=== PATIENT | male | born 1935 | race Caucasian/White ===

== ENCOUNTER → 2019-10-19 00:01 | Outpatient (RCR) | payer OTHER, SELFPAY | LOC: ONCRAD 09-20 06:58 | PROVIDERS: Family Provider Emergency Medicine Emergency Medical Services; Visit Provider Specialist | DX: Z51.0 Encounter for antineoplastic radiation therapy (principal); C61 Malignant neoplasm of prostate; K64.9 Unspecified hemorrhoids; Z79.818 Long term (current) use of other agents affecting estrogen receptors and estrogen levels; Z79.899 Other long term (current) drug therapy; Z79.82 Long term (current) use of aspirin | CPT/HCPCS: 36415; 77280; 77300 ×2; 77336 ×4; 77338 ×2; 77385 ×20; 80053; 84153; 84403; 85025; 96402; 99214; J9202 ==

== ENCOUNTER 2019-11-08 06:17 | Outpatient (RCR) | payer OTHER, SELFPAY ==
--- NOTE | 2019-10-26 11:23 | ONCRAD TMN_ITS ---
Radiation Oncology Weekly Treatment Management Patient: Blayne Sanford MR#: [id number] : 1935> Age: 84> Sex: Male Dictated by: Dr. Brent Solomon Date of Service: 10/26/2019 Referring Physician(s) : Dr. Wero Rivera Primary Diagnosis: C61 - Malignant neoplasm of prostate, Diagnosed 06/17/2019 (Active) Radiotherapy to date: Course: Prostate 2019, Treatment Site: Prostate 45Gy, Ref. ID: [id number], Energy: 6X, Dose/Fx (cGy): 180, #Fx: 25 / 25, Dose Correction (cGy): 0, Total Dose (cGy): 4,500, Start Date: 09/02/2019, End Date: 10/12/2019, Elapsed Days: 40 Prostate 2018, Treatment Site: Prostate 55Gy, Ref. ID: [id number], Energy: 6X, Dose/Fx (cGy): 200, #Fx: 5 / 5, Dose Correction (cGy): 0, Total Dose (cGy): 1,000, Start Date: 10/14/2019, End Date: 10/21/2019, Elapsed Days: 7 Prostate 2018, Treatment Site: Prostate 79Gy, Ref. ID: [id number], Energy: 6X, Dose/Fx (cGy): 200, #Fx: 3 / 12, Dose Correction (cGy): 0, Total Dose (cGy): 600, Start Date: 10/22/2019, Elapsed Days: 4 Current Complaints/Interval History: Constitutional Complains of night sweats which occur every night. Denies lack of appetite, fatigue and fever. Gastrointestinal Complains of occasional diarrhea. Denies constipation. He has a history of hemorrhoids. He noticed blood on wiping after bowel movements and anal irritation possibly related to hemorrhoid flare up. Genitourinary (M) Complains of occasional incontinence. Complains of nocturia gets up about 2 times per night. Denies dysuria, frequency and urgency. Current Medications: Aspirin, cholecalciferol, donepezil HCl, ondansetron HCl, tamsulosin HCl. Allergies: No Known Allergies Vital Signs: Performed on 10/26/2019 10:35 AM BMI - 28.494 kg/m2 (high), Height - 64.00 in, Weight - 166.0 lbs, Temperature - 97.2 f, Pulse - 60, Respiration - 20, O2 Sat - 99 %, Pain - 0 and BP - 128/ 79 mm(hg). Physical Exam: Appears stable, no skin erythema or desquamation. Performance Status: 1 - No physically strenuous activity, but ambulatory and able to carry out light or sedentary work (e.g. office work, light house work). (ECOG) Lab: Test performed on 09/28/2019 11:05 AM MCV - 99.3 fl (high), MCH - 35.0 pg (high), Cr Clearance (Est) - 65.15 ml/min (low), Glucose - 116 mg/dl (high) and Testosterone, Total - 2.5 ng/dl (low). Imaging: No new diagnostic imaging was performed since the last weekly treatment visit. All radiation therapy related imaging (including but not limited to CBCT generated images) was reviewed. Appropriate changes, if any, were made to assure accurate target localization. Impression/Plan: Tolerating treatment well with expected side effects. Continue treatment as planned. Continue preparation H for hemorrhoid flareup CPT: 82795 Signed by: Dr. Brent Solomon>10/26/2019 11:22:00 AM <<Signature on File>>
--- NOTE | 2019-11-02 12:55 | ONCRAD TMN_ITS ---
Radiation Oncology Weekly Treatment Management Patient: Blayne Sanford MR#: [id number] : 1935> Age: 84> Sex: Male Dictated by: Dr. Brent Solomon Date of Service: 11/02/2019 Referring Physician(s) : Dr. Wero Rivera Primary Diagnosis: C61 - Malignant neoplasm of prostate, Diagnosed 06/17/2019 (Active) Radiotherapy to date: Course: Prostate 2019, Treatment Site: Prostate 45Gy, Ref. ID: [id number], Energy: 6X, Dose/Fx (cGy): 180, #Fx: 25 / 25, Dose Correction (cGy): 0, Total Dose (cGy): 4,500, Start Date: 09/02/2019, End Date: 10/12/2019, Elapsed Days: 40 Prostate 2018, Treatment Site: Prostate 55Gy, Ref. ID: [id number], Energy: 6X, Dose/Fx (cGy): 200, #Fx: 5 / 5, Dose Correction (cGy): 0, Total Dose (cGy): 1,000, Start Date: 10/14/2019, End Date: 10/21/2019, Elapsed Days: 7 Prostate 2018, Treatment Site: Prostate 79Gy, Ref. ID: [id number], Energy: 6X, Dose/Fx (cGy): 200, #Fx: 8 / 12, Dose Correction (cGy): 0, Total Dose (cGy): 1,600, Start Date: 10/22/2019, Elapsed Days: 11 Current Complaints/Interval History: Constitutional Complains of night sweats. Denies lack of appetite, fatigue and fever. Gastrointestinal Denies diarrhea, rectal bleeding or irritation Genitourinary (M) Complains of nocturia gets up about 2 times per night. Denies dysuria, frequency and urgency. Current Medications: Aspirin, cholecalciferol, donepezil HCl, ondansetron HCl, tamsulosin HCl. Allergies: No Known Allergies Vital Signs: Performed on 11/02/2019 10:29 AM BMI - 28.357 kg/m2 (high), Height - 64.00 in, Weight - 165.2 lbs, Temperature - 97.2 f, Pulse - 70, Respiration - 20, O2 Sat - 100 %, Pain - 0 and BP - 131/ 71 mm(hg). Physical Exam: Appears stable, no skin erythema or desquamation. Performance Status: 1 - No physically strenuous activity, but ambulatory and able to carry out light or sedentary work (e.g. office work, light house work). (ECOG) Lab: Test performed on 09/28/2019 11:05 AM MCV - 99.3 fl (high), MCH - 35.0 pg (high), Cr Clearance (Est) - 65.15 ml/min (low), Glucose - 116 mg/dl (high) and Testosterone, Total - 2.5 ng/dl (low). Imaging: No new diagnostic imaging was performed since the last weekly treatment visit. All radiation therapy related imaging (including but not limited to CBCT generated images) was reviewed. Appropriate changes, if any, were made to assure accurate target localization. Impression/Plan: Tolerating treatment well. Continue treatment as planned. CPT: 51373 Signed by: Dr. Brent Solomon>11/02/2019 12:53:51 PM <<Signature on File>>
== END 2019-11-19 23:59 | disposition home or self-care (01) ==
LOC: ONCRAD 06:17
PROVIDERS: Family Provider Emergency Medicine Emergency Medical Services; PCP Emergency Medicine Emergency Medical Services; Visit Provider Radiology Radiation Oncology
DX: Z51.0 Encounter for antineoplastic radiation therapy (principal); C61 Malignant neoplasm of prostate; Z79.82 Long term (current) use of aspirin
CPT/HCPCS: 77014; 77280; 77336; 77385; 77427

== ENCOUNTER 2019-12-08 05:56 | Outpatient (RCR) | payer OTHER, SELFPAY ==
--- NOTE | 2019-12-08 10:54 | ONCRAD EPV_ITS ---
Radiation Oncology Established Patient Visit Patient: Chris MR#: [id number] : 1935> Age: 84> Sex: Male> Dictated by: Dr. Brent Solomon Date of Service: 12/08/2019 Referring Physician(s) : Dr. Wero Rivera Diagnosis: C61 - Malignant neoplasm of prostate, Diagnosed 06/17/2019 (Active) Chief Complaint / History of Present Illness: The patient is a 84 year old gentleman recently diagnosed with T1c, N0, M0 adenocarcinoma of the prostate, Norma score 4+5, PSA 53, high risk disease. He was started on androgen deprivation therapy on 06/29/2019. He received combination therapy with androgen deprivation and external beam radiation therapy to a total dose of 79 Gy completed on November 08, 2019. The patient notes nocturia x2-4 but denies dysuria, frequency, urgency, hematuria, rectal bleeding or irritation. Current Medications: Aspirin, cholecalciferol, donepezil HCl, ondansetron HCl, tamsulosin HCl. Allergies: No Known Allergies Current Complaints / Review of Systems: Constitutional - Complains of night sweats which occur every night. Denies lack of appetite, fatigue and fever. Eyes - Denies blurred vision and double vision. ENMT - Complains of mouth dryness off and on. Denies dysphagia, ear pain, stomatitis, altered taste and tinnitus. Neck - Complains of neck pain left side of the neck that started about a week ago. Denies decreased range of motion. Integumentary - Denies rash. Cardiovascular - Denies arrhythmias, chest pain and edema. Respiratory - Denies cough, dyspnea and wheezing. Gastrointestinal - Complains of hemorrhoids. Denies abdominal pain, constipation, diarrhea, heartburn / dyspepsia, melena / GI bleeding, nausea and vomiting. No rectal bleeding or irritation. Genitourinary (M) - Complains of occasional incontinence. Complains of nocturia gets up about 2 to 4 times per night. Denies dysuria, frequency and urgency. 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 Denies bone pain and joint pain. Neurologic - Denies dizziness and headaches. Endocrine - Complains of frequent hot flashes. Denies diabetes and thyroid disease. Hematologic/Lymphatic - Denies tender or enlarged lymph nodes.. Vital Signs: Performed on 12/08/2019 10:16 AM BMI - 29.146 kg/m2 (high), Height - 64.00 in, Weight - 169.8 lbs, Temperature - 97.1 f, Pulse - 69, Respiration - 20, O2 Sat - 100 %, Pain - 0, Fatigue - 0 and BP - 126/ 71 mm(hg). Physical Exam: General: Alert and oriented x 3. No acute distress. HEENT: Normocephalic, atraumatic. Extraocular Movements Intact: Pupils Equal, Round, Reactive to Light and Accommodation: Sclerae anicteric. Oral cavity is clear without lesions, masses or ulcers. NECK: Supple without supraclavicular or jugular lymphadenopathy. LUNGS: Clear to auscultation bilaterally without rales, rhonchi or wheeze. HEART: Regular rate and rhythm, normal S1 and S2 without murmur, gallop or rub. MUSCULOSKELETAL: No tenderness or percussion pain over the axial skeleton, scapulae or pelvis. ABDOMEN: Soft, nontender, nondistended without masses or organomegaly. Bowel sounds are present. EXTREMITIES: No peripheral edema is identified. Limited motor and sensory examination are grossly intact and symmetric bilaterally. NEUROLOGIC: Cranial nerves II ???XII are grossly intact. Normal sensation, strength 5/5 in all extremities, normal gait, no ataxia. Performance Status: 1 - No physically strenuous activity, but ambulatory and able to carry out light or sedentary work (e.g. office work, light house work). (ECOG) Lab: Test performed on 09/28/2019 11:05 AM MCV - 99.3 fl (high), MCH - 35.0 pg (high), Cr Clearance (Est) - 65.15 ml/min (low), Glucose - 116 mg/dl (high) and Testosterone, Total - 2.5 ng/dl (low). Pathology: adenocarcinoma of prostate, Imaging: See HPI Impression/plan: The patient has recovered well from RT. he will continue hormonal therapy under the care of Dr. Black. We will check his PSA in about a 4 to 6 months and have him follow up with us afterwards. Signed by: 12/08/2019 10:52:21 AM <<Signature on File>> CPT Code: CPT Code: Signed By: Dr. Brent Solomon, 12/08/2019 10:52:22 AM <<Signature on File>>
== END 2019-12-18 23:59 | disposition home or self-care (01) ==
LOC: ONCRAD 05:56
PROVIDERS: Family Provider Emergency Medicine Emergency Medical Services; PCP Emergency Medicine Emergency Medical Services; Visit Provider Radiology Radiation Oncology
DX: C61 Malignant neoplasm of prostate (principal); R35.1 Nocturia; Z92.3 Personal history of irradiation

== ENCOUNTER 2019-12-28 05:46 | Outpatient (RCR) | payer OTHER, SELFPAY ==
[2019-12-28 11:54] LABS: Prostate Specific Antigen 0.06 ng/mL (0-4)
[2019-12-28 12:06] LABS: Alanine Aminotransferase 11 U/L (0-41); Alkaline Phosphatase 52 IU/L (40-130); Anion Gap 17.1 (5-19); Aspartate Amino Transferase 20 U/L (0-40); Blood Urea Nitrogen 20 mg/dL (8-23); Calcium 10.1 mg/dL (8.5-10.5); Carbon Dioxide 27 mmol/L (22-29); Chloride 102 mmol/L (98-107); Globulin 3.2 g/dL (1.3-4.6); Glucose 117 mg/dL (65-115); Osmolality Calculated 292 mOsm/kg (285-295); Potassium 4.1 mmol/L (3.5-5.1); Sodium 142 mmol/L (136-145); Total Bilirubin 0.5 mg/dL (0.15-1.2); Total Protein 7.2 g/dL (6.6-8.7)
[2019-12-28] MEDS: lidocaine 1% INJ 20 mL INJECTION (13:14)
--- NOTE | 2019-12-28 13:18 | ONC FU_ITS ---
Dr. Black follow up note Patient: Blayne Sanford Unit #: [id number]: 1935 Dicatated By: Abril Black M.D.Date of Visit:Dec 28, 2019 Onc Med Follow-up/Prog Note History of Present Illness: Mr. Blayne Sanford , is a 84-year-old gentleman with history of elevated PSA and underwent TRUSP/biopsy on 04/16/2019 which showed Norma score 4+5, 30% involvement left lateral mid, PIN low-grade left mid and left apex and his PSA was 60.14 on 04/16/2019. Underwent staging workup with bone scan and CT scan of abdomen pelvis on 05/04/2019 which showed markedly enlarged prostate gland but no adenopathy and bone scan was negative. Patient denies any weight loss patient denies any hematuria patient denies any bony pains. Started on Zoladex 10.8 mg every 3 months and Casodex 50 mg daily on 06/29/2019 plan to continue as concurrent with radiation therapy followed by adjuvant s/p concurrent radiation therapy and ADT . completed on 11/08/2019, Casodex discontinued on 09/28/2019 Came for follow-up, denies any specific complaints, except occasionally hot flashes but tolerable otherwise tolerating Zoladex well and, no nausea vomiting no fever no chills denies abdominal pain or dysuria. Medications: Aspirin 1 Tablet (of 81 mg) Oral daily, Cholecalciferol 1 Tablet (of 2000 Units) Oral daily, Donepezil HCl 1 Tablet (of 10 mg) Oral at bedtime, Ondansetron HCl 1 Tablet (of 4 mg) Oral q 4 hours PRN, Tamsulosin HCl 1 Capsule (of 0.4 mg) Oral at bedtime Allergies: No Known Allergies. Review of Systems: Constitutional - Appetite is good and weight is stable. No fever, chills, hot flashes, or night sweats. Energy level is good, ENMT - Positive for sinus congestion/drainage. No mouth sores. No sore throat or difficulty swallowing, Hematologic/Lymphatic - No abnormal bruising or bleeding, Respiratory - No shortness of breath. No cough. No pleuritic pain or hemoptysis, Cardiovascular - No angina pain. No palpitations, Gastrointestinal - No nausea or vomiting. No heartburn or acid reflux. Positive for diarrhea, no constipation. Positive for bloody stools, Genitourinary (M) - No dysuria or hematuria. No urinary frequency. No urgency or incontinence, Musculoskeletal - Positive for joint pain, Neurologic - Positive for headache, no dizziness. Positive for tingling in fingers, Psychiatric - No anxiety or depression. No insomnia. Vital Signs: Performed on Dec 28, 2019 12:43 Height - 64.00 in Weight - 171.4 lbs (HIGH) BSA - 1.83 sq.m BMI - 29.42 Temperature - 97.6 F (LOW) Pulse - 67 /min Respiration - 18 /min BP - 128/77 mm(hg) O2 Sat - 93 % (LOW) Pain - 0 Performance Status: 0 - Fully active, able to carry on all predisease activities without restrictions. (ECOG) Physical Examination: ENMT - No oral exudates, ulcers, masses, thrush or mucositis. Oropharynx clear. Tongue normal, Respiratory - Lungs are clear to auscultation without rhonchi or wheezing, Cardiovascular - Regular rate and rhythm of heart, Abdomen - Non-tender, non-distended, no masses, Good bowel sounds. No guarding or rebound tenderness. No pulsatile masses, Extremities - no edema. Lab/Imaging: Test performed on Sep 28, 2019 11:05 Sodium 137 mmol/L Testosterone, Total 2.5 ng/dL Potassium 4.0 mmol/L Chloride 99 mmol/L CO2 26 mmol/L Anion Gap 16.0 BUN 11 mg/dL Creatinine 0.9 mg/dL Cr Clearance (Est) 65.15 mL/min Glucose 116 mg/dl Calcium 10.2 mg/dL Protein, Total 7.8 g/dL Albumin 4.6 g/dL Globulin 3.2 gm/dL Bilirubin, Total 1.0 mg/dL ALT (SGPT) 10 U/L AST (SGOT) 20 U/L Alkaline Phosphatase 57 U/L WBC 4.3 10 3/uL RBC 4.23 10 6/uL HGB 14.8 g/dL HCT 42.0 % MCV 99.3 fl MCH 35.0 pg MCHC 35.2 g/dl RDW 12.4 % Platelet Count 145 10 3/cmm MPV 8.2 fl Neutrophils 3.0 10 3/uL Lymphocytes 0.8 10 3/uL Monocytes 0.3 10 3/uL Eosinophils 0.1 10 3/uL Basophils 0.0 10 3/uL Neutrophil % 70.5 % Lymphocyte % 19.3 % Monocyte % 7.4 % Eosinophil % 1.6 % Basophils % 0.7 % PSA 0.54 ng/mL Impression: Adenocarcinoma of the prostate status post TURSP/biopsy done on 04/16/2019 showed [place] score 4+5, 30% involvement left lateral mid, PIN low-grade left mid and left apex, next PSA checked on 04/16/2019 was 60.14 Started on Casodex 50 mg daily on 06/29/2019 till 09/28/2019 and Zoladex was added on 06/29/2019. s/p concurrent radiation therapy. completed on 11/08/2019 Plan: Discussed with patient regarding his labs CMP within normal limits PSA 0.06 compared to 0.54 on 09/28/2019 and 60.14 on 04/16/2019 Clinically, patient doing well with no signs symptoms suggestive of recurrence/progression of disease, tolerating Zoladex alone well but with expected side effects e.g. occasionally hot flashes but tolerable. We'll proceed with next 3 monthly dose of Zoladex today, being high risk, patient will continue 3 monthly Zoladex for next 2 years. Return to clinic in 3 months with PSA and for 3 monthly Zoladex. Signed By: Abril Black M.D. <<Signature on File>>
[2019-12-28] MEDS: goserelin acetate 10.8 mg Implant IM (13:26)
== END 2020-01-18 23:59 | disposition home or self-care (01) ==
LOC: ONCRAD 05:46
PROVIDERS: Family Provider Emergency Medicine Emergency Medical Services; PCP Emergency Medicine Emergency Medical Services; Visit Provider Internal Medicine Hematology & Oncology
DX: C61 Malignant neoplasm of prostate (principal); Z79.818 Long term (current) use of other agents affecting estrogen receptors and estrogen levels; Z79.899 Other long term (current) drug therapy; Z79.82 Long term (current) use of aspirin; Z92.3 Personal history of irradiation
CPT/HCPCS: 36415; 80053; 84153; 96372; 96402; 99214; J2001; J9202

== ENCOUNTER 2020-03-29 10:49 | Outpatient (CLI) | payer OTHER, SELFPAY ==
--- NOTE | 2020-03-29 13:14 | ONC FU_ITS ---
Dr. Black follow up note Patient: Blayne Sanford Unit #: [id number]: 1935 Dicatated By: Abril Black M.D.Date of Visit:Mar 29, 2020 Onc Med Follow-up/Prog Note History of Present Illness: Mr. Blayne Sanford , is a 85-year-old gentleman with history of elevated PSA and underwent TRUSP/biopsy on 04/16/2019 which showed Norma score 4+5, 30% involvement left lateral mid, PIN low-grade left mid and left apex and his PSA was 60.14 on 04/16/2019. Underwent staging workup with bone scan and CT scan of abdomen pelvis on 05/04/2019 which showed markedly enlarged prostate gland but no adenopathy and bone scan was negative. Patient denies any weight loss patient denies any hematuria patient denies any bony pains. Started on Zoladex 10.8 mg every 3 months and Casodex 50 mg daily on 06/29/2019 plan to continue as concurrent with radiation therapy followed by adjuvant s/p concurrent radiation therapy and ADT . completed on 11/08/2019, Casodex discontinued on 09/28/2019 Came for follow-up, denies any special complaint today, no nausea vomiting, no fever chills, no diarrhea constipation, occasionally hot flashes otherwise tolerating 3 monthly Zoladex well Medications: Aspirin 1 Tablet (of 81 mg) Oral daily, Cholecalciferol 1 Tablet (of 2000 Units) Oral daily, Donepezil HCl 1 Tablet (of 10 mg) Oral at bedtime, Ondansetron HCl 1 Tablet (of 4 mg) Oral q 4 hours PRN, Tamsulosin HCl 1 Capsule (of 0.4 mg) Oral at bedtime Allergies: No Known Allergies. Review of Systems: Constitutional - Appetite is good and weight is stable. No fever, chills, hot flashes, or night sweats. Energy level is good, ENMT - Positive for sinus congestion/drainage. No mouth sores. No sore throat or difficulty swallowing, Hematologic/Lymphatic - No abnormal bruising or bleeding, Respiratory - No shortness of breath. No cough. No pleuritic pain or hemoptysis, Cardiovascular - No angina pain. No palpitations, Gastrointestinal - No nausea or vomiting. No heartburn or acid reflux. Positive for diarrhea, no constipation. Positive for bloody stools, Genitourinary (M) - No dysuria or hematuria. No urinary frequency. No urgency or incontinence, Musculoskeletal - Positive for joint pain, Neurologic - Positive for headache, no dizziness. Positive for tingling in fingers, Psychiatric - No anxiety or depression. No insomnia. Vital Signs: Performed on Mar 29, 2020 12:44 Height - 64.00 in Weight - 170.8 lbs (LOW) BSA - 1.83 sq.m BMI - 29.32 Temperature - 97.9 F (LOW) Pulse - 68 /min Respiration - 22 /min BP - 138/67 mm(hg) O2 Sat - 100 % Pain - 0 Performance Status: 0 - Fully active, able to carry on all predisease activities without restrictions. (ECOG) Physical Examination: ENMT - No mouth sores, no thrush, no jaundice, Respiratory - Lungs are clear, Cardiovascular - Regular rate and rhythm of heart, Abdomen - Soft, bowel sounds present, nontender, Extremities - No visible edema or rash. Lab/Imaging: Test performed on Dec 28, 2019 11:14 Sodium 142 mmol/L Potassium 4.1 mmol/L Chloride 102 mmol/L CO2 27 mmol/L Anion Gap 17.1 BUN 20 mg/dL Creatinine 0.9 mg/dL Cr Clearance (Est) 67.19 mL/min Glucose 117 mg/dL Calcium 10.1 mg/dL Protein, Total 7.2 g/dL Albumin 4.0 g/dL Globulin 3.2 g/dL Bilirubin, Total 0.5 mg/dL ALT (SGPT) 11 U/L AST (SGOT) 20 U/L Alkaline Phosphatase 52 IU/L PSA 0.06 ng/mL Impression: Adenocarcinoma of the prostate status post TURSP/biopsy done on 04/16/2019 showed [place] score 4+5, 30% involvement left lateral mid, PIN low-grade left mid and left apex, next PSA checked on 04/16/2019 was 60.14 Started on Casodex 50 mg daily on 06/29/2019 till 09/28/2019 and Zoladex was added on 06/29/2019. s/p concurrent radiation therapy. completed on 11/08/2019 Plan: Discussed with patient regarding his lab, PSA today is 0.02 compared to 0.06 on December 28, 2019 Clinically, patient is doing well tolerating 3 monthly Zoladex well but with expected side effects e.g. occasional hot flashes. We will proceed with next dose of Zoladex today and then he will return to clinic in 3 months with PSA/testosterone. And for Zoladex. Signed By: Abril Black M.D. <<Signature on File>>
[2020-03-29] MEDS: lidocaine 1% INJ 20 mL INJECTION (13:20)
[2020-03-29] MEDS: goserelin acetate 10.8 mg Implant IM (13:35)
== END 2020-03-29 10:50 | disposition home or self-care (01) ==
PROVIDERS: PCP Emergency Medicine Emergency Medical Services; Visit Provider Internal Medicine Hematology & Oncology
DX: C61 Malignant neoplasm of prostate (principal); R97.20 Elevated prostate specific antigen [PSA]; Z92.3 Personal history of irradiation; Z79.818 Long term (current) use of other agents affecting estrogen receptors and estrogen levels
CPT/HCPCS: 36415; 84153; 96372; 96402; 99214; J2001; J9202

== ENCOUNTER → 2020-06-27 10:17 | Outpatient (BNVA) | payer OTHER, SELFPAY | PROVIDERS: PCP Emergency Medicine Emergency Medical Services; Visit Provider Urology | DX: R33.9 Retention of urine, unspecified (principal); C61 Malignant neoplasm of prostate; R15.2 Fecal urgency | CPT/HCPCS: 81001 ==

== ENCOUNTER 2020-07-03 11:53 | Outpatient (CLI) | payer OTHER, SELFPAY ==
[2020-07-03 13:29] LABS: Prostate Specific Antigen 0.012 ng/mL (0-4); Testosterone Total < 2.5 ng/dL (193-740)
[2020-07-03] MEDS: lidocaine 1% INJ 20 mL INJECTION (14:45)
[2020-07-03] MEDS: goserelin acetate 10.8 mg Implant IM (14:55)
--- NOTE | 2020-07-09 14:02 | ONC FU_ITS ---
[facility] Patient Note Patient: Blayne Sanford Unit #: [id number]: 1935 Dictated By: Monique CastilloDate of Visit: Jul 03, 2020 Onc MED Follow-Up/Prog Note Chief Complaint: Prostate cancer History of Present Illness: Mr. Sanford is a pleasant 85-year-old gentleman with history of elevated PSA. He underwent TRUSP/biopsy on 04/16/2019 which showed Norma score 4+5, 30% involvement left lateral mid, PIN low-grade left mid and left apex. His PSA was 60.14 on 04/16/2019. Mr Sanford underwent staging workup with bone scan and CT scan of abdomen pelvis on 05/04/2019 which showed markedly enlarged prostate gland but no adenopathy and bone scan was negative. He was started on Zoladex 10.8 mg every 3 months and Casodex 50 mg daily on 06/29/2019 with the plan to continue as concurrent with radiation therapy followed by adjuvant hormonal therapy. s/p concurrent radiation therapy and ADT . completed on 11/08/2019, Casodex discontinued on 09/28/2019. Mr Sanford has continued on Zoladex every 3 months with no signs of disease progression. Mr. Sanford presents today for follow-up. He is accompanied by his son-in-law. He is very pleasant today. I did speak to his daughter on the phone who tells me that they have had him recently declared incompetent and she is his power of erisa attorney. She states overall he seems to be declining somewhat. She states his walking has gotten weaker and his trouble getting up and down by himself. She states he frequently tells her that his back and bones hurt but when he comes to the providers office he just remembers that he feels good. She states he is had some loose runny stools off and on but has not noted any blood with them. His appetite has been relatively good and that his weight is stable is actually up a few pounds. He has not had any fever or chills. He does utilize a wheelchair at times because his walking is weaker in general. He is still able to do most of his ADLs although he does require some assistance at times. He does have trouble remembering things. She has not noted any nausea or vomiting. He has not complained of any neuropathy symptoms. His ECOG is 2. Past Medical History: Acute renal insufficiency Alzheimer's disease Dizziness Left inguinal hernia Past Surgical History: Cataract excision - bilateral Colonoscopy Allergies: No Known Allergies. Medications: Aspirin 1 Tablet (of 81 mg) Oral daily Cholecalciferol 1 Tablet (of 2000 Units) Oral daily Donepezil HCl 1 Tablet (of 10 mg) Oral at bedtime Ondansetron HCl 1 Tablet (of 4 mg) Oral q 4 hours PRN Tamsulosin HCl 1 Capsule (of 0.4 mg) Oral at bedtime Family History: Mr. Sanford's mother at age 85: type II diabetes, and head injury. Mr. Sanford's father at age 48: suicide. Mr. Sanford has 2 brothers: 2 . Mr. Sanford's first brother's lung cancer. Another brother's stomach cancer. He has 3 sisters: 1 alive, 2 . Mr. Sanford's first sister's cervical cancer. Another sister's lung cancer. Another sister's ovarian cancer. Social History: Mr. Sanford is single and he is retired. Mr. Sanford quit smoking 65 years ago but had smoked 1.0 pack/day for 3 years. He has no history of drinking. Mr. Sanford reports no contact with hazardous material. Mr. Sanford reports the following support systems: lives alone, lives in own house, supportive family/friends willing to assist with needs, and adequate transportation available for expected visits. His diet consists of regular meals. He indicates his activity level as: light exercise. Review Of Symptoms: Constitutional Denies fevers, chills, night sweats, excessive fatigue or weight loss. See above for additional ROS Allergic/Immunologic No reactions. Eyes Denies significant visual changes. No diplopia. No amaurosis. ENMT Denies changes in hearing, sore throat, mouth sores, difficulty or changes in swallowing ability, and/or sinus drainage. Endocrine No diabetes, thyroid disease or hormone replacement. Denies hot flashes or night sweats. Hematologic/Lymphatic Denies easy bruising or bleeding. The patient denies any tender or palpable lymph nodes. Respiratory Denies dyspnea on exertion, chest pain, cough or hemoptysis. Denies orthopnea. Cardiovascular Denies anginal chest pain, palpitations or orthopnea. Gastrointestinal Denies nausea, vomiting, diarrhea, GI bleeding, or constipation. Denies change in bowel habits and/or stool color, no heartburn or early satiety. Genitourinary (M) Denies hematuria, dysuria, increased frequency, urgency, hesitancy or incontinence. Musculoskeletal Denies joint pain, swelling or redness. No decreased range of motion. Integumentary Denies chronic rashes, inflammation, ulcerations or skin changes. Neurologic Denies headache, blurred vision, and no areas of focal weakness or numbness. Normal gait. No sensory problems. Psychiatric Denies insomnia, depression, hollie or mood swings. Vital Signs: Performed on Jul 03, 2020 14:02 Height - 64.00 in Weight - 177.6 lbs (HIGH) BSA - 1.86 sq.m BMI - 30.49 (HIGH) Temperature - 97.3 F (LOW) Pulse - 78 /min Respiration - 15 /min BP - 134/74 mm(hg) O2 Sat - 98 % Pain - 0,2 - Ambulatory/capable of all self-care, unable to perform any work activities. Up and about more than 50% of waking hours. (ECOG) Physical Examination: Constitutional Alert, oriented, no acute distress. Skin pink, warm and dry. Head Normocephalic; atraumatic. Eyes Conjunctivae and sclerae are clear and without icterus. Pupils are reactive and equal. Neck Supple without masses or thyromegaly. No jugular venous distension. Hematologic/Lymphatic No petechiae or purpura. No tender or palpable lymph nodes in the cervical or supraclavicular areas. Respiratory Lungs are clear to auscultation without rhonchi or wheezing. Cardiovascular Regular rate and rhythm of heart without murmurs,clicks, gallops or rubs. Abdomen Non-tender, non-distended, no masses or ascites. Good bowel sounds noted in all quads. No guarding or rebound tenderness. No pulsatile masses. Back/Spine Non-tender to palpation. Extremities No visible deformities, no cyanosis, clubbing or edema. Musculoskeletal No tenderness or swelling, normal range of motion without obvious weakness. Integumentary No rashes or lesions. Neurologic No sensory or motor deficits, normal cerebellar function, normal gait. Psychiatric Alert and oriented times three. Coherent speech. Verbalizes understanding of our discussions today. 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 s/p concurrent radiation therapy. completed on 11/08/2019. He has continued on every 3 month Zoladex. Plan: 1. Proceed with Zoladex today as scheduled. 2. PSA for today was reviewed in detail and discussed with Mr. Sanford and his son-in-law and a copy was sent with him. His PSA today is 0.012. His PSA on March 29, 2020 was 0.02. 3. We will schedule him for restaging imaging with bone scan, CT of the abdomen and pelvis with and without contrast for follow-up. His last scans have been sometime ago and the bone scan was May 04, [address] of the abdomen pelvis was May 04, 2019. Given that he has told his daughter that is having new pain and it has been this long since his imaging we will restage him. There is no signs of disease progression based on his PSA. 4. We will tentatively plan to see him back in 3 months with CBC CMP PSA vitamin D and testosterone level the vitamin D is to assess his myalgias. 5. Mr. Sanford and his family have been encouraged to contact us in the interim should any questions or problems arise. Signed By: Monique Castillo-FEI, AODOUG Black MD <<Signature on File>>
== END 2020-07-03 11:54 | disposition home or self-care (01) ==
LOC: ONCMED 11:58
PROVIDERS: PCP Emergency Medicine Emergency Medical Services; Visit Provider Internal Medicine Hematology & Oncology
DX: C61 Malignant neoplasm of prostate (principal); Z79.818 Long term (current) use of other agents affecting estrogen receptors and estrogen levels; M79.10 Myalgia, unspecified site; Z92.3 Personal history of irradiation
CPT/HCPCS: 84153; 84403; 96372; 96402; 99214; J9202

== ENCOUNTER 2020-07-13 07:23 | Outpatient (CLI) | payer OTHER, SELFPAY ==
--- NOTE | 2020-07-13 07:28 | NM_ITS ---
WS: [id number] NUCLEAR MEDICINE BONE SCAN Radiopharmaceutical: 27.2 Tc-99m MDP mCi IV Injection site: Left antecubital Postinjection imaging delay: 1 hr CLINICAL INFORMATION: BONE PAIN-BACK PAIN/FOLLOW UP FROM APRIL 2019 COMPARISON: FINDINGS: Bone lesions: There are no osseous lesions suspicious for metastatic disease. Soft tissue contours: Normal. Kidneys: Normal. Other findings: Degenerative uptake involving both knees medially and both AC joints. NM/NM bone scan whole body* [id number] IMPRESSION: No evidence of osseous metastatic disease.
--- NOTE | 2020-07-13 07:28 | CT_ITS ---
WS: [id number] CT ABDOMEN PELVIS TECHNIQUE: Contrast-enhanced CT of the abdomen and pelvis with coronal and sagittal reformatted image s. CLINICAL INFORMATION: PROSTATE CA/FOLLOW UP COMPARISON: CT 7 16,019 DLP: 693.[address] scans at [facility] use at least one of these dose optimization techniques: automat ed exposure control; mA and/or kV adjustment per patient size (includes targeted exams where dose is matched to clinical indication); or iterative reconstruction. FINDINGS: Diffuse fatty infiltration liver. Portal vein and splenic vein are patent. Normal gallbladder. Lung b ases are well aerated. Mild fatty atrophy of the pancreas. Adrenal glands are normal. Normal renal pa renchymal enhancement. No hydronephrosis. Small left renal cyst. Small esophageal hiatal hernia. Norm al caliber abdominal aorta. Fat-containing left inguinal hernia. Enlarged calcified prostate measuring 5.7 x 5.1 x 7.5 cm slight ly improved compared to previous. Impingement on the bladder with nodularity. Normal seminal vesicles . No perirectal lymphadenopathy. No evidence of small or large bowel obstruction. No free fluid in th e pelvis. No abdominal or pelvic lymphadenopathy. No pelvic sidewall lymphadenopathy. No inguinal lymphadenopat hy. No visualized bony metastatic lesions. CT/CT abdomen pelvis w con* [id number] IMPRESSION: 1. Enlarged nodular prostate measuring 5.7 x 5.1 x 7.5 cm appears slightly imp roved. 2. Bladder wall thickening consistent bladder outlet obstruction. 3. No abdominal or pelvic lymphadenopathy. No perirectal or inguinal lymphaden opathy. 4. Fat-containing left inguinal hernia. 5. Mild diffuse fatty infiltration liver. 6. No evidence of bony metastatic disease.
[2020-07-13 08:36] LABS: Anion Gap 14.1 (5-19); Blood Urea Nitrogen 18 mg/dL (8-23); Calcium 9.6 mg/dL (8.5-10.5); Carbon Dioxide 27 mmol/L (22-29); Chloride 102 mmol/L (98-107); Glucose 139 mg/dL (65-115); Osmolality Calculated 292 mOsm/kg (285-295); Potassium 4.1 mmol/L (3.5-5.1); Sodium 139 mmol/L (136-145)
[2020-07-13] MEDS: iohexol 300 mg/mL 50 mL Btl PO (08:51)
[2020-07-13] MEDS: iohexol 300 mg/mL 100 mL Btl IV (08:58)
== END 2020-07-13 07:24 | disposition home or self-care (01) ==
LOC: NM 07:24
PROVIDERS: PCP Emergency Medicine Emergency Medical Services; Visit Provider Nurse Practitioner
DX: C61 Malignant neoplasm of prostate (principal); M89.8X9 Other specified disorders of bone, unspecified site; M54.9 Dorsalgia, unspecified; K40.90 Unilateral inguinal hernia, without obstruction or gangrene, not specified as recurrent; K76.0 Fatty (change of) liver, not elsewhere classified
CPT/HCPCS: 74177; 78306; 80048; A9561

== ENCOUNTER 2020-10-02 11:04 | Outpatient (CLI) | payer OTHER, SELFPAY ==
[2020-10-02 11:43] LABS: Basophils % 0.4 %; Eosinophils # 0.1 10^3/uL (0.0-0.8); Eosinophils % 1.2 %; Hematocrit 40.7 % (42.0-52.0); Hemoglobin 13.9 g/dL (11.7-16.6); Lymphocytes # 1.7 10^3/uL (0.8-4.8); Lymphocytes % 30.5 %; Mean Corpuscular HGB Conc 34.2 g/dL (30.0-36.0); Mean Corpuscular Hemoglobin 35.8 pg (28.0-34.0); Mean Corpuscular Volume 104.9 fL (80-94); Mean Platelet Volume 8.2 fL (7.4-10.4); Monocytes # 0.5 10^3/uL (0.2-0.9); Neutrophils # 3.35 10^3/uL (1.8-7.7); Neutrophils % 59.4 %; Nucleated Red Blood Cells % 0 %; Platelet Count 124 10^3/cmm (130-400); Red Blood Count 3.88 10^6/uL (4.1-5.3); White Blood Count 5.6 10^3/uL (4.0-10.0)
[2020-10-02 13:51] LABS: 25 Hydroxy Vitamin D 35 ng/mL (30-100); Alanine Aminotransferase 14 U/L (0-41); Alkaline Phosphatase 60 IU/L (40-130); Aspartate Amino Transferase 20 U/L (0-40); Blood Urea Nitrogen 18 mg/dL (8-23); Calcium 9.6 mg/dL (8.5-10.5); Carbon Dioxide 26 mmol/L (22-29); Chloride 101 mmol/L (98-107); Glucose 183 mg/dL (65-115); Osmolality Calculated 295 mOsm/kg (285-295); Sodium 139 mmol/L (136-145); Total Bilirubin 0.4 mg/dL (0.15-1.2)
--- NOTE | 2020-10-02 13:54 | ONC FU_ITS ---
Dr. Black follow up note Patient: Blayne Sanford Unit #: [id number]: [id number] Dicatated By: Abril Black M.D.Date of Visit:Oct 02, 2020 Onc Med Follow-up/Prog Note History of Present Illness: Mr. Sanford is a pleasant 85-year-old gentleman with history of elevated PSA. He underwent TRUSP/biopsy on 04/16/2019 which showed Chamisal score 4+5, 30% involvement left lateral mid, PIN low-grade left mid and left apex. His PSA was 60.14 on 04/16/2019. Mr Sanford underwent staging workup with bone scan and CT scan of abdomen pelvis on 05/04/2019 which showed markedly enlarged prostate gland but no adenopathy and bone scan was negative. He was started on Zoladex 10.8 mg every 3 months and Casodex 50 mg daily on 06/29/2019 with the plan to continue as concurrent with radiation therapy followed by adjuvant hormonal therapy. s/p concurrent radiation therapy and ADT . completed on 11/08/2019, Casodex discontinued on 09/28/2019. Mr Sanford has continued on Zoladex every 3 months with no signs of disease progression. Came for follow-up, denies any specific complaints except off-and-on hot flashes otherwise no fever chills no nausea or vomiting no diarrhea or constipation, no new bony pains, tolerating Zoladex well otherwise Medications: Aspirin 1 Tablet (of 81 mg) Oral daily, Cholecalciferol 1 Tablet (of 2000 Units) Oral daily, Donepezil HCl 1 Tablet (of 10 mg) Oral at bedtime, Ondansetron HCl 1 Tablet (of 4 mg) Oral q 4 hours PRN, Tamsulosin HCl 1 Capsule (of 0.4 mg) Oral at bedtime Allergies: No Known Allergies. Review of Systems: Constitutional - Appetite is good and weight is stable. No fever, chills, Positive for hot flashes, or night sweats. Energy level is good, ENMT - Positive for sinus congestion/drainage. No mouth sores. No sore throat or difficulty swallowing, Hematologic/Lymphatic - No abnormal bruising or bleeding, Respiratory - No shortness of breath. No cough. No pleuritic pain or hemoptysis, Cardiovascular - No angina pain. No palpitations, Gastrointestinal - No nausea or vomiting. No heartburn or acid reflux. Positive for diarrhea, no constipation. Positive for bloody stools, Genitourinary (M) - No dysuria or hematuria. Positive for urinary frequency. No urgency or incontinence, Musculoskeletal - Positive for joint pain, Neurologic - No for headache, no dizziness. Positive for tingling in fingers, Psychiatric - No anxiety or depression. No insomnia. Vital Signs: Performed on Oct 02, 2020 13:00 Height - 64.00 in Weight - 177.4 lbs (LOW) BSA - 1.86 sq.m BMI - 30.45 (HIGH) Temperature - 97.2 F (LOW) Pulse - 80 /min Respiration - 18 /min BP - 120/80 mm(hg) O2 Sat - 98 % Pain - 0 Performance Status: 1 - No physically strenuous activity, but ambulatory and able to carry out light or sedentary work (e.g. office work, light house work). (ECOG) Physical Examination: ENMT - No mouth sores, no thrush, no jaundice, Respiratory - Lungs are clear to auscultation, Cardiovascular - Regular rate and rhythm of heart, Abdomen - Soft, bowel sounds present, Extremities - No visible edema. 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 s/p concurrent radiation therapy. completed on 11/08/2019. He has continued on every 3 month Zoladex. Plan: Discussed with patient regarding his labs white blood count 5.6 hemoglobin 13.9 hematocrit 40.7 platelets 124,000 CMP and PSA is pending and bone scan done on July 13, 2020 showed no evidence of metastatic disease follow-up CT scan of abdomen pelvis showed no evidence of disease except enlarged prostate but now with some improvement Clinically, patient is doing well with no new signs symptoms suggestive of recurrence of disease tolerating Zoladex well but with expected side effect e.g. hot flashes. follow-up bone scan and CT scan of abdomen pelvis confirmed no evidence of disease, his PSA is pending, will proceed with next 3 monthly dose of Zoladex today and then he will return to clinic in 3 months with a PSA. Signed By: Abril Black M.D. <<Signature on File>>
[2020-10-02] MEDS: lidocaine 1% INJ 20 mL INJECTION (14:00)
[2020-10-02] MEDS: goserelin acetate 10.8 mg Implant IM (14:10)
[2020-10-02 14:23] LABS: Prostate Specific Antigen 0.013 ng/mL (0-4); Testosterone Total < 2.5 ng/dL (193-740)
== END 2020-10-02 11:05 | disposition home or self-care (01) ==
LOC: ONCMED 11:06
PROVIDERS: PCP Emergency Medicine Emergency Medical Services; Visit Provider Internal Medicine Hematology & Oncology
DX: C61 Malignant neoplasm of prostate (principal); Z79.818 Long term (current) use of other agents affecting estrogen receptors and estrogen levels; Z92.3 Personal history of irradiation
CPT/HCPCS: 36415; 80053; 82306; 84153; 84403; 85025; 96372; 96402; 99214; J9202

== ENCOUNTER 2021-01-15 11:55 | Outpatient (CLI) | payer OTHER, SELFPAY ==
[2021-01-15 12:45] LABS: Prostate Specific Antigen 0.012 ng/mL (0-4)
[2021-01-15] MEDS: lidocaine 1% INJ 20 mL INJECTION (14:44)
[2021-01-15] MEDS: goserelin acetate 10.8 mg Implant IM (14:55)
--- NOTE | 2021-01-15 15:31 | ONC FU_ITS ---
[facility] Patient Note Patient: Blayne Sanford Unit #: [id number]: 1935 Dictated By: Monique CastilloDate of Visit: Jan 15, 2021 Onc MED Follow-Up/Prog Note Chief Complaint: Prostate cancer History of Present Illness: Mr. Sanford is a pleasant 85-year-old gentleman with history of elevated PSA. He underwent TRUSP/biopsy on 04/16/2019 which showed [place] score 4+5, 30% involvement left lateral mid, PIN low-grade left mid and left apex. His PSA was 60.14 on 04/16/2019. Mr Sanford underwent staging workup with bone scan and CT scan of abdomen pelvis on 05/04/2019 which showed markedly enlarged prostate gland but no adenopathy and bone scan was negative. He was started on Zoladex 10.8 mg every 3 months and Casodex 50 mg daily on 06/29/2019 with the plan to continue as concurrent with radiation therapy followed by adjuvant hormonal therapy. s/p concurrent radiation therapy and ADT . completed on 11/08/2019, Casodex discontinued on 09/28/2019. Mr Sanford has continued on Zoladex every 3 months with no signs of disease progression. His PSA remains undectable @ 0.013 on 10/02/2020. Mr. Sanford is here today for follow-up. He is due for Zoladex today. He is accompanied by his nephew in law and his niece attended the visit on speaker phone per her 's cell phone. Mr. Sanford has no new concerns today. He has had arthritis in his knees and back. He states the pain is still there. Is no better. He states some days are worse than others. It does limit his mobility and he is having to walk with a cane. He denies any recent falls. He denies any fever or chills. He states his bowels and bladder are normal for him. He denies any shortness of breath or cough. He has had no lower extremity edema. His ECOG is 1. In regards to his arthritis pain. His niece is requesting to try gabapentin with him at night. We discussed at length that gabapentin typically is more for nerve pain and may not be effective for his arthritis pain also muscle concerned about high fall risk. She is persistent with the gabapentin and states to be taken at night and she is not as concerned about the fall risk at that time. We did discuss that is typically 3 times a day treatment he could try just at bedtime. I did tell her we will start with low-dose. We did discuss using nonsteroidal anti-inflammatories, but they have requested to try the gabapentin first. We did discuss dosing and will start amount of 100 mg at bedtime and may titrate up to 100 mg 3 times daily or 300 mg at bedtime depending on what his needs are throughout the day. Max dosing of gabapentin is 900 mg 3 times daily. I have asked him to call if he is not having any improvement with his arthritis pain with the gabapentin at which time we could try Celebrex or meloxicam. Past Medical History: Acute renal insufficiency Alzheimer's disease Dizziness Left inguinal hernia Past Surgical History: Cataract excision - bilateral Colonoscopy Allergies: No Known Allergies. Medications: Aspirin 1 Tablet (of 81 mg) Oral daily Cholecalciferol 1 Tablet (of 2000 Units) Oral daily Donepezil HCl 1 Tablet (of 10 mg) Oral at bedtime Ondansetron HCl 1 Tablet (of 4 mg) Oral q 4 hours PRN Tamsulosin HCl 1 Capsule (of 0.4 mg) Oral at bedtime Family History: Mr. Sanford's mother at age 85: type II diabetes, and head injury. Mr. Sanford's father at age 48: suicide. Mr. Sanford has 2 brothers: 2 . Mr. Sanford's first brother's lung cancer. Another brother's stomach cancer. He has 3 sisters: 1 alive, 2 . Mr. Sanford's first sister's cervical cancer. Another sister's lung cancer. Another sister's ovarian cancer. Social History: Mr. Sanford is single and he is retired. Mr. Sanford quit smoking 66 years ago but had smoked 1.0 pack/day for 3 years. He has no history of drinking. Mr. Sanford reports no contact with hazardous material. Mr. Sanford reports the following support systems: lives alone, lives in own house, supportive family/friends willing to assist with needs, and adequate transportation available for expected visits. His diet consists of regular meals. He indicates his activity level as: light exercise. Review Of Symptoms: Constitutional Denies fevers, chills, excessive fatigue or weight loss. He is having significant hot flashes. He states he Allergic/Immunologic No reactions. ENMT Denies changes in hearing, sore throat, mouth sores, difficulty or changes in swallowing ability, and/or sinus drainage. Hematologic/Lymphatic Denies easy bruising or bleeding. The patient denies any tender or palpable lymph nodes. Respiratory Denies dyspnea on exertion, chest pain, cough or hemoptysis. Denies orthopnea. Cardiovascular Denies anginal chest pain, palpitations or orthopnea. Gastrointestinal Denies nausea, vomiting, diarrhea, GI bleeding, or constipation. Denies change in bowel habits and/or stool color, no heartburn or early satiety. Genitourinary (M) Denies hematuria, dysuria, increased frequency, urgency, hesitancy or incontinence. Musculoskeletal He has chronic bilateral knee pain lower back pain due to arthritis he is currently not taking anything for his arthritis. His niece has requested that he try gabapentin. Integumentary Denies chronic rashes, inflammation, ulcerations or skin changes. Neurologic Denies headache, blurred vision, and no areas of focal weakness or numbness. Cane assisted gait. No sensory problems. Psychiatric Denies insomnia, depression, hollie or mood swings. Vital Signs: Performed on Jan 15, 2021 14:11 Height - 64.00 in Weight - 180.4 lbs (HIGH) BSA - 1.87 sq.m BMI - 30.97 (HIGH) Temperature - 98.3 F (LOW) Pulse - 75 /min Respiration - 19 /min BP - 123/73 mm(hg) O2 Sat - 97 % Pain - 0,1 - No physically strenuous activity, but ambulatory and able to carry out light or sedentary work (e.g. office work, light house work). (ECOG) Physical Examination: Constitutional Alert, oriented, no acute distress. Skin pink, warm and dry. Head Normocephalic; atraumatic. Eyes Conjunctivae and sclerae are clear and without icterus. Pupils are reactive and equal. Neck Supple without masses or thyromegaly. No jugular venous distension. Respiratory Lungs are clear to auscultation without rhonchi or wheezing. Cardiovascular Regular rate and rhythm of heart without murmurs,clicks, gallops or rubs. Abdomen Non-tender, non-distended, no masses or ascites. Good bowel sounds noted in all quads. No guarding or rebound tenderness. No pulsatile masses. Back/Spine Non-tender to palpation. Extremities No visible deformities, no cyanosis, clubbing or edema. Musculoskeletal No tenderness or swelling, normal range of motion without obvious weakness. Integumentary No rashes or lesions. Neurologic No sensory or motor deficits, normal cerebellar function, normal gait. Psychiatric Alert and oriented times three. Coherent speech. Verbalizes understanding of our discussions today. Laboratory:Test performed on Jan 15, 2021 12:02 PSA 0.012 ng/mL Test performed on Oct 02, 2020 11:17 Sodium 139 mmol/L Testosterone, Total < 2.5 ng/dL Vitamin D (25-Hydroxy), Total 35 ng/mL Potassium 4.0 mmol/L Chloride 101 mmol/L CO2 26 mmol/L Anion Gap 16.0 BUN 18 mg/dL Creatinine 0.9 mg/dL Cr Clearance (Est) 68.3000 mL/min Glucose 183 mg/dL Osmolality - Calculated 295 mOsm/kg Calcium 9.6 mg/dL Protein, Total 7.0 g/dL Albumin 4.0 g/dL Globulin 3.0 g/dL Bilirubin, Total 0.4 mg/dL ALT (SGPT) 14 U/L AST (SGOT) 20 U/L Alkaline Phosphatase 60 IU/L WBC 5.6 10 3/uL RBC 3.88 10 6/uL HGB 13.9 g/dL HCT 40.7 % MCV 104.9 fL MCH 35.8 pg MCHC 34.2 g/dL RDW 12.0 % Platelet Count 124 10 3/cmm MPV 8.2 fL Neutrophils 3.35 10 3/uL Lymphocytes 1.7 10 3/uL Monocytes 0.5 10 3/uL Eosinophils 0.1 10 3/uL Basophils 0.0 10 3/uL Neutrophil % 59.4 % Lymphocyte % 30.5 % Monocyte % 8.0 % Eosinophil % 1.2 % Basophils % 0.4 % NRBC % 0 % Impression: 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 s/p concurrent radiation therapy. completed on 11/08/2019. He has continued on every 3 month Zoladex. Plan: PROBLEMS ADDRESSED TODAY 1. Adenocarcinoma of the prostate status post TUR SP/biopsy done on 04/08/2019. The biopsy showed [place] score 4+5, 30% involvement in the left lateral mid, PIN low-grade left mid and left apex. PSA on 04/16/2019 was 60.14. Started on Casodex 50 mg daily on June 29, 2019 and continued through September 28, 2019. Zoladex was also added every 3 months starting on June 29, 2019. He did have radiation therapy which was completed on November 08, 2019. He is continued on Zoladex every 3 months and is tolerating it well. His PSA has responded well. Follow-up bone scan in July 13, 2020 which showed no evidence of metastatic disease. Then follow-up CT of the abdomen pelvis also showed no evidence of disease except enlarged prostate but overall it was improved. A. Proceed with Zoladex 10.8 mg. His last dose was on October 02, 2020. B. His PSA from today was reviewed in detail and discussed with Mr. Sanford and a copy was given to him as well as his nephew in law. His PSA today 0.012. C. His last bone scan was July 13, 2020 which reported no evidence of metastatic disease. D. He did have CT of the abdomen pelvis with and without contrast on May 04, 2019. There is no evidence of osteoblastic or osteolytic disease he did have marginally enlarged prostate gland at that time 8.3 x 6.7 x 8 cm. There is no renal obstruction; no adenopathy or ascites; mild constipation and no osteoblastic bone disease as mentioned above. 2. Hot flashes related to androgen deprivation A. We will try Effexor XR 37.5 mg at bedtime. I have asked that he start with 1 tablet at bedtime and may increase to 2 if needed over a 7 to 10-day window. He was cautioned regarding sedation with this medication as well. B. Mr. Sanford was instructed let us know prior to his follow-up in 3 months if this is not helping with his hot flashes. 3. Bilateral knee and back pain presumably related to osteoarthritis. He has had no evidence of metastatic osteoblastic or osteolytic lesions. A. He has a history of acute renal insufficiency would proceed with nonsteroidals with caution. B. His family is requesting to try gabapentin for his pain. We will start with 100 mg at bedtime if increased to total 300 mg daily if needed. There advised that this may not work well for his arthritis pain. They have also been cautioned regarding sedation and high fall risk. His family states that we given his treatment night/at bedtime and therefore that should decrease his fall risk. 4. Follow-up plan A. Pres[facility] for the gabapentin [facility] [place] They are aware they will have to wait for those to 5 in the mail. B. We will plan to see him back in 3 months with CBC CMP and PSA as well as total testosterone. C. He will be due for Zoladex 10.8 mg again at that time. D. Mr. Sanford and his family were encouraged to contact us in interim should questions or problems arise. Signed By: Monique Castillo-, AOCNP Abril Black MD <<Signature on File>>
== END 2021-01-15 11:56 | disposition home or self-care (01) ==
LOC: ONCMED 11:58
PROVIDERS: PCP Emergency Medicine Emergency Medical Services; Visit Provider Nurse Practitioner
DX: C61 Malignant neoplasm of prostate (principal); Z79.899 Other long term (current) drug therapy; Z79.818 Long term (current) use of other agents affecting estrogen receptors and estrogen levels; Z92.3 Personal history of irradiation; R23.2 Flushing; T45.1X5A Adverse effect of antineoplastic and immunosuppressive drugs, initial encounter; M25.562 Pain in left knee; M25.561 Pain in right knee; M54.9 Dorsalgia, unspecified; Z87.448 Personal history of other diseases of urinary system
CPT/HCPCS: 84153; 96372; 96402; 99214; J9202

== ENCOUNTER 2021-04-09 13:13 | Outpatient (CLI) | payer OTHER, SELFPAY ==
[2021-04-09 13:33] LABS: Basophils % 0.5 %; Eosinophils # 0.1 10^3/uL (0.0-0.8); Hematocrit 40.2 % (42.0-52.0); Hemoglobin 13.9 g/dL (11.7-16.6); Lymphocytes # 1.8 10^3/uL (0.8-4.8); Lymphocytes % 29.1 %; Mean Corpuscular HGB Conc 34.6 g/dL (30.0-36.0); Mean Corpuscular Hemoglobin 36.3 pg (28.0-34.0); Mean Platelet Volume 8.1 fL (7.4-10.4); Monocytes # 0.5 10^3/uL (0.2-0.9); Monocytes % 8.1 %; Neutrophils # 3.62 10^3/uL (1.8-7.7); Nucleated Red Blood Cells % 0 %; Platelet Count 130 10^3/cmm (130-400); Red Blood Count 3.83 10^6/uL (4.1-5.3); Red Cell Distribution Width 12.4 % (12.1-15.1)
[2021-04-09 13:59] LABS: Testosterone Total 2.5 ng/dL (193-740)
[2021-04-09 14:00] LABS: Prostate Specific Antigen 0.008 ng/mL (0-4)
[2021-04-09 14:10] LABS: Alanine Aminotransferase 15 U/L (0-41); Albumin Level 3.9 g/dL (3.5-5.2); Alkaline Phosphatase 66 IU/L (40-130); Anion Gap 16.1 (5-19); Aspartate Amino Transferase 19 U/L (0-40); Blood Urea Nitrogen 13 mg/dL (8-23); Calcium 9.2 mg/dL (8.5-10.5); Carbon Dioxide 26 mmol/L (22-29); Chloride 100 mmol/L (98-107); Globulin 2.8 g/dL (1.3-4.6); Glucose 178 mg/dL (65-115); Osmolality Calculated 291 mOsm/kg (285-295); Potassium 4.1 mmol/L (3.5-5.1); Sodium 138 mmol/L (136-145); Total Bilirubin 0.4 mg/dL (0.15-1.2); Total Protein 6.7 g/dL (6.6-8.7)
[2021-04-09] MEDS: lidocaine 1% INJ 20 mL SUBCUT (15:44)
[2021-04-09] MEDS: goserelin acetate 10.8 mg Implant SUBCUT (16:07)
--- NOTE | 2021-04-09 16:45 | ONC FU_ITS ---
Dr. Black follow up note Patient: Blayne Sanford Unit #: [id number]: 1935 Dicatated By: Abril Black M.D.Date of Visit:Apr 09, 2021 Onc Med Follow-up/Prog Note History of Present Illness: Mr. Sanford is a pleasant 85-year-old gentleman with history of elevated PSA. He underwent TRUSP/biopsy on 04/16/2019 which showed [place] score 4+5, 30% involvement left lateral mid, PIN low-grade left mid and left apex. His PSA was 60.14 on 04/16/2019. Mr Sanford underwent staging workup with bone scan and CT scan of abdomen pelvis on 05/04/2019 which showed markedly enlarged prostate gland but no adenopathy and bone scan was negative. He was started on Zoladex 10.8 mg every 3 months and Casodex 50 mg daily on 06/29/2019 with the plan to continue as concurrent with radiation therapy followed by adjuvant hormonal therapy. s/p concurrent radiation therapy and ADT . completed on 11/08/2019, Casodex discontinued on 09/28/2019. Mr Sanford has continued on Zoladex every 3 months with no signs of disease progression. His PSA remains undectable @ 0.013 on 10/02/2020. Came for follow-up, denies any specific complaints, no fever chills, no nausea or vomiting, no diarrhea constipation, no melena or hematochezia, no hematuria or dysuria occasional hot flashes otherwise tolerating Zoladex well Medications: Aspirin 1 Tablet (of 81 mg) Oral daily, Cholecalciferol 1 Tablet (of 2000 Units) Oral daily, Donepezil HCl 1 Tablet (of 10 mg) Oral at bedtime, Ondansetron HCl 1 Tablet (of 4 mg) Oral q 4 hours PRN, Tamsulosin HCl 1 Capsule (of 0.4 mg) Oral at bedtime Allergies: No Known Allergies. Review of Systems: Review of Systems is not available for this patient. Vital Signs: Performed on Apr 09, 2021 15:07 Height - 64.00 in Weight - 178.6 lbs (LOW) BSA - 1.86 sq.m BMI - 30.66 (HIGH) Temperature - 97.5 F (LOW) Pulse - 76 /min Respiration - 17 /min BP - 149/67 mm(hg) (HIGH) O2 Sat - 97 % Pain - 0 Performance Status: 0 - Fully active, able to carry on all predisease activities without restrictions. (ECOG) Physical Examination: ENMT - No mouth sores, no thrush, no jaundice, Respiratory - Lungs are clear to auscultation, Abdomen - Soft, bowel sounds present, Extremities - No visible edema. Lab/Imaging: Test performed on Jan 15, 2021 12:02 PSA 0.012 ng/mL Impression: Adenocarcinoma of the prostate status post TURSP/biopsy done on 04/16/2019 showed [place] score 4+5, 30% involvement left lateral mid, PIN low-grade left mid and left apex, next PSA checked on 04/16/2019 was 60.14 Started on Casodex 50 mg daily on 06/29/2019 till 09/28/2019 and Zoladex was added on 06/29/2019. s/p concurrent radiation therapy. completed on 11/08/2019. He has continued on every 3 month Zoladex. Plan: Discussed with patient regarding his labs white blood count 6 hemoglobin 13.9 hematocrit 40.2 platelets 130,000 CMP within normal limits PSA 0.008 compared to 0.012 previously Clinically, patient doing well with no signs symptom suggestive of recurrence of disease or disease progression, tolerating 3 monthly Zoladex well, will proceed with next 3 monthly dose of Zoladex today and then he will return to clinic in 3 months with PSA and for next dose of Zoladex which she will continue for total 36 months Patient was given Effexor 37.5 mg for recurrent hot flashes but patient said he could not tolerate Effexor so he discontinued overall he is tolerating Zoladex well otherwise. Signed By: Abril Black M.D. <<Signature on File>>
== END 2021-04-09 13:14 | disposition home or self-care (01) ==
LOC: ONCMED 13:15
PROVIDERS: PCP Emergency Medicine Emergency Medical Services; Visit Provider Nurse Practitioner
DX: C61 Malignant neoplasm of prostate (principal); Z79.818 Long term (current) use of other agents affecting estrogen receptors and estrogen levels
CPT/HCPCS: 80053; 84153; 84403; 85025; 96372; 96402; 99215; J9202

== ENCOUNTER 2021-07-11 11:29 | Outpatient (CLI) | payer OTHER, SELFPAY ==
[2021-07-11 13:09] LABS: Prostate Specific Antigen < 0.006 ng/mL (0-4)
[2021-07-11] MEDS: lidocaine 1% INJ 20 mL INJECTION (15:00)
[2021-07-11] MEDS: goserelin acetate 10.8 mg Implant SUBCUT (15:09)
--- NOTE | 2021-09-07 11:36 | ONC FU_ITS ---
Dr. Black follow up note Patient: Blayne Sanford Unit #: [id number]: 1935 Dicatated By: Abril Black M.D.Date of Visit:Jul 11, 2021 Onc Med Follow-up/Prog Note History of Present Illness: Mr. Sanford is a pleasant 86-year-old gentleman with history of elevated PSA. He underwent TRUSP/biopsy on 04/16/2019 which showed [place] score 4+5, 30% involvement left lateral mid, PIN low-grade left mid and left apex. His PSA was 60.14 on 04/16/2019. Mr Sanford underwent staging workup with bone scan and CT scan of abdomen pelvis on 05/04/2019 which showed markedly enlarged prostate gland but no adenopathy and bone scan was negative. He was started on Zoladex 10.8 mg every 3 months and Casodex 50 mg daily on 06/29/2019 with the plan to continue as concurrent with radiation therapy followed by adjuvant hormonal therapy. s/p concurrent radiation therapy and ADT . completed on 11/08/2019, Casodex discontinued on 09/28/2019. Mr Sanford has continued on Zoladex every 3 months with no signs of disease progression. His PSA remains undectable @ 0.013 on 10/02/2020. Came for follow-up, denies any specific complaints, no fever chills, no nausea or vomiting, no diarrhea constipation but hot flashes otherwise tolerating Zoladex well Medications: Aspirin 1 Tablet (of 81 mg) Oral daily, Cholecalciferol 1 Tablet (of 2000 Units) Oral daily, Donepezil HCl 1 Tablet (of 10 mg) Oral at bedtime, Ondansetron HCl 1 Tablet (of 4 mg) Oral q 4 hours PRN, Tamsulosin HCl 1 Capsule (of 0.4 mg) Oral at bedtime Allergies: No Known Allergies. Review of Systems: Review of Systems is not available for this patient. Vital Signs: Performed on Jul 11, 2021 14:00 Height - 64.00 in Weight - 175.6 lbs (LOW) BSA - 1.85 sq.m BMI - 30.14 (HIGH) Temperature - 97.8 F (LOW) Pulse - 78 /min Respiration - 18 /min BP - 131/73 mm(hg) O2 Sat - 98 % Pain - 4 Performance Status: 0 - Fully active, able to carry on all predisease activities without restrictions. (ECOG) Physical Examination: ENMT - No mouth sores, no thrush no jaundice, Respiratory - Lungs are clear to auscultation, Cardiovascular - Regular rate and rhythm of heart, Abdomen - Soft, bowel sounds present, Extremities - No visible edema. Lab/Imaging: Test performed on Jan 15, 2021 12:02 PSA 0.012 ng/mL Impression: Adenocarcinoma of the prostate status post TURSP/biopsy done on 04/16/2019 showed [place] score 4+5, 30% involvement left lateral mid, PIN low-grade left mid and left apex, next PSA checked on 04/16/2019 was 60.14 Started on Casodex 50 mg daily on 06/29/2019 till 09/28/2019 and Zoladex was added on 06/29/2019. s/p concurrent radiation therapy. completed on 11/08/2019. He has continued on every 3 month Zoladex. Chronic diarrhea Plan: Discussed with patient regarding his labs his PSA has gone down further to less than 0.006 compared to 0.008 previously Clinically, patient doing well with no new signs symptom suggestive of recurrence of disease, he is tolerating Zoladex well but with expected side effects e.g. off and on hot flashes and generalized weakness and fatigue. 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 Return to clinic in 3 months with PSA and for Zoladex Signed By: Abril Black M.D. <<Signature on File>>
== END 2021-07-11 11:30 | disposition home or self-care (01) ==
LOC: ONCMED 11:32
PROVIDERS: PCP Emergency Medicine Emergency Medical Services; Visit Provider Internal Medicine Hematology & Oncology
DX: Z51.11 Encounter for antineoplastic chemotherapy (principal); C61 Malignant neoplasm of prostate; R97.20 Elevated prostate specific antigen [PSA]
CPT/HCPCS: 36415; 84153; 96372; 96402; 99215; J9202

== ENCOUNTER → 2021-08-23 09:52 | Outpatient (BNVA) | payer OTHER, SELFPAY | PROVIDERS: PCP Emergency Medicine Emergency Medical Services; Visit Provider Urology | DX: R39.9 Unspecified symptoms and signs involving the genitourinary system (principal) | CPT/HCPCS: 81003 ==

== ENCOUNTER 2021-10-03 11:56 | Outpatient (CLI) | payer OTHER, SELFPAY ==
[2021-10-03 13:31] LABS: Prostate Specific Antigen < 0.014 ng/mL (0-4)
[2021-10-03] MEDS: goserelin acetate 10.8 mg Implant SUBCUT (15:17)
[2021-10-03] MEDS: lidocaine 1% INJ 20 mL INJECTION (15:27)
--- NOTE | 2021-10-04 09:35 | ONC FU_ITS ---
Dr. Black follow up note Patient: Blayne Sanford Unit #: [id number]: 1935 Dicatated By: Abril Black M.D.Date of Visit:Oct 03, 2021 Onc Med Follow-up/Prog Note History of Present Illness: Mr. Sanford is a pleasant 86-year-old gentleman with history of elevated PSA. He underwent TRUSP/biopsy on 04/16/2019 which showed [place] score 4+5, 30% involvement left lateral mid, PIN low-grade left mid and left apex. His PSA was 60.14 on 04/16/2019. Mr Sanford underwent staging workup with bone scan and CT scan of abdomen pelvis on 05/04/2019 which showed markedly enlarged prostate gland but no adenopathy and bone scan was negative. He was started on Zoladex 10.8 mg every 3 months and Casodex 50 mg daily on 06/29/2019 with the plan to continue as concurrent with radiation therapy followed by adjuvant hormonal therapy. s/p concurrent radiation therapy and ADT . completed on 11/08/2019, Casodex discontinued on 09/28/2019. Mr Sanford has continued on Zoladex every 3 months with no signs of disease progression. His PSA remains undectable @ 0.013 on 10/02/2020. Came for follow-up, denies any specific complaint except chronic mild diarrhea, sometimes incontinence, awaiting GI evaluation in [place]. But no melena or hematochezia, no abdominal pain, no jaundice, no dysuria or hematuria, occasionally hot flashes otherwise tolerating 3 monthly Zoladex well Medications: Aspirin 1 Tablet (of 81 mg) Oral daily, Cholecalciferol 1 Tablet (of 2000 Units) Oral daily, Donepezil HCl 1 Tablet (of 10 mg) Oral at bedtime, Ondansetron HCl 1 Tablet (of 4 mg) Oral q 4 hours PRN, Tamsulosin HCl 1 Capsule (of 0.4 mg) Oral at bedtime Allergies: No Known Allergies. Review of Systems: Review of Systems is not available for this patient. Vital Signs: Performed on Oct 03, 2021 16:43 Height - 64.00 in Weight - 171.4 lbs (LOW) BSA - 1.83 sq.m BMI - 29.42 Temperature - 97.0 F (LOW) Pulse - 113 /min (HIGH) Respiration - 18 /min BP - 151/83 mm(hg) (HIGH) O2 Sat - 98 % Pain - 0 Fatigue - 0 Performance Status: 0 - Fully active, able to carry on all predisease activities without restrictions. (ECOG) Physical Examination: ENMT - No mouth sores, no thrush, no jaundice, Respiratory - Lungs are clear to auscultation, Cardiovascular - Regular rate and rhythm of heart, Abdomen - Soft, bowel sounds present, Extremities - No visible edema. Lab/Imaging: Most recent lab results are not available for this patient. 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 s/p concurrent radiation therapy. completed on 11/08/2019. He has continued on every 3 month Zoladex. Chronic diarrhea Plan: Discussed with patient regarding his labs PSA less than 0.014 compared to less than 0.006 on July 11, 2021 Clinically, patient is doing well with no new signs symptom suggestive of recurrence of disease, his follow-up PSA shows slight increase but still subzero, will continue to monitor and will proceed with next 3 monthly dose of Zoladex today and then he will return to clinic in 3 months with PSA As per his chronic diarrhea is concerned which is under control with antidiarrheal treatment, patient is awaiting GI evaluation in [facility] Signed By: Abril Black M.D. <<Signature on File>>
== END 2021-10-03 11:57 | disposition home or self-care (01) ==
PROVIDERS: Internal Medicine Hematology & Oncology; PCP Emergency Medicine Emergency Medical Services; Visit Provider Emergency Medicine Emergency Medical Services
DX: C61 Malignant neoplasm of prostate (principal); Z79.899 Other long term (current) drug therapy; R97.21 Rising PSA following treatment for malignant neoplasm of prostate; K52.9 Noninfective gastroenteritis and colitis, unspecified
CPT/HCPCS: 84153; 96372; 96402; 99215; J9202

== ENCOUNTER 2021-12-26 11:49 | Outpatient (CLI) | payer OTHER, SELFPAY ==
[2021-12-26 13:02] LABS: Prostate Specific Antigen < 0.014 ng/mL (0-4)
[2021-12-26] MEDS: lidocaine 1% INJ 20 mL INJECTION (15:00)
[2021-12-26] MEDS: goserelin acetate 10.8 mg Implant SUBCUT (15:15)
--- NOTE | 2021-12-26 17:11 | ONC FU_ITS ---
Dr. Black follow up note Patient: Blayne Sanford Unit #: [id number]: 1935 Dicatated By: Abril Black M.D.Date of Visit:Dec 26, 2021 Onc Med Follow-up/Prog Note History of Present Illness: Mr. Sanford is a pleasant 86-year-old gentleman with history of elevated PSA. He underwent TRUSP/biopsy on 04/16/2019 which showed Norma score 4+5, 30% involvement left lateral mid, PIN low-grade left mid and left apex. His PSA was 60.14 on 04/16/2019. Mr Sanford underwent staging workup with bone scan and CT scan of abdomen pelvis on 05/04/2019 which showed markedly enlarged prostate gland but no adenopathy and bone scan was negative. He was started on Zoladex 10.8 mg every 3 months and Casodex 50 mg daily on 06/29/2019 with the plan to continue as concurrent with radiation therapy followed by adjuvant hormonal therapy. s/p concurrent radiation therapy and ADT . completed on 11/08/2019, Casodex discontinued on 09/28/2019. Mr Sanford has continued on Zoladex every 3 months with no signs of disease progression. His PSA remains undectable @ 0.013 on 10/02/2020. Came for follow-up, with complaint except chronic diarrhea and off and on incontinence, now with worsening, denies any blood or mucus in the stool denies any abdominal pain, denies any abdominal fullness, denies any nausea or vomiting, denies any jaundice, patient was supposed to see gastroenterology in [place] but as per patient her earliest appointment available is in February 2022. Denies any fever chills, denies any dysuria or hematuria, off and on hot flashes And now worsening, otherwise tolerating Zoladex reasonably well. Medications: Aspirin 1 Tablet (of 81 mg) Oral daily, Cholecalciferol 1 Tablet (of 2000 Units) Oral daily, Donepezil HCl 1 Tablet (of 10 mg) Oral at bedtime, Ondansetron HCl 1 Tablet (of 4 mg) Oral q 4 hours PRN, Tamsulosin HCl 1 Capsule (of 0.4 mg) Oral at bedtime Allergies: No Known Allergies. Review of Systems: Review of Systems is not available for this patient. Vital Signs: Performed on Dec 26, 2021 14:51 Height - 64.00 in Weight - 170.8 lbs (LOW) BSA - 1.83 sq.m BMI - 29.32 Temperature - 96.5 F (LOW) Pulse - 90 /min Respiration - 18 /min BP - 144/72 mm(hg) (HIGH) O2 Sat - 96 % Pain - 0 Fatigue - 1 Performance Status: 0 - Fully active, able to carry on all predisease activities without restrictions. (ECOG) Physical Examination: ENMT - No mouth sores, no thrush, no jaundice, Respiratory - Lungs are clear to auscultation, Cardiovascular - Regular rate and rhythm of heart, Abdomen - Soft, bowel sounds present, Extremities - No visible edema. Lab/Imaging: Most recent lab results are not available for this patient. 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 s/p concurrent radiation therapy. completed on 11/08/2019. He has continued on every 3 month Zoladex., Concluded adjuvant therapy on December 26, 2021 Chronic diarrhea ,Etiology unclear Plan: Discussed with patient regarding his lab PSA less than 0.014 Clinically, patient doing well with no new signs symptom, tolerating 3 monthly Zoladex, well except expected side effects like hot flashes, as per patient now is getting worse and in fact considering stopping Zoladex, moreover patient has completed more than 24 months of adjuvant Zoladex therapy, so we will give him final dose of Zoladex today and with that his hot flashes may improve and then he will return to clinic in 6 months with CMP PSA and testosterone. As per his chronic diarrhea is concerned, patient used to have off and on diarrhea prior to combined ADT/radiation therapy to his prostate but as per patient since he has done radiation therapy, as diarrhea is worsening and now with off and on incontinence. Patient was scheduled to see gastroenterology in [place] but as per patient the earliest appointment available is in February 2022, in that case we will refer him to skylights assembler in [place], [place]. In the meantime patient will continue to follow with his primary care and we will see him back in 6 months as mentioned above Signed By: Abril Black M.D. <<Signature on File>>
== END 2021-12-26 11:50 | disposition home or self-care (01) ==
PROVIDERS: PCP Emergency Medicine Emergency Medical Services; Visit Provider Internal Medicine Hematology & Oncology
DX: C61 Malignant neoplasm of prostate (principal); K52.9 Noninfective gastroenteritis and colitis, unspecified; Z79.818 Long term (current) use of other agents affecting estrogen receptors and estrogen levels; Z92.3 Personal history of irradiation
CPT/HCPCS: 36415; 84153; 96372; 96402; 99215; J9202

== ENCOUNTER 2022-03-09 13:09 | Emergency (ER) | payer OTHER, SELFPAY ==
--- NOTE | 2022-03-09 13:12 | XRR_ITS ---
PROCEDURE INFORMATION: Exam: XR Pelvis Exam date and time: 03/09/2022 1:17 PM Age: 87 years old Clinical indication: Injury or trauma; Fall; Blunt trauma (contusions or hematomas); Bilateral; Pelvic region TECHNIQUE: Imaging protocol: XR pelvis. Views: 1 or 2 view. COMPARISON: CT abdomen pelvis w con* [id number] 07/13/2020 8:46 AM FINDINGS: Bones/joints: Unremarkable. No acute fracture. Soft tissues: Unremarkable. XR/XR pelvis 1-2V* [id number] IMPRESSION: No acute findings.
--- NOTE | 2022-03-09 13:12 | ECG_ITS ---
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 Measurements Intervals [place] Rate: 75 P: 35 [place]: 161 QRS: -28 QRSD: 92 T: 57 QT: 390 QTc: 438 Interpretive Statements SINUS RHYTHM BORDERLINE LEFT AXIS DEVIATION [QRS AXIS < -20] NONSPECIFIC T-WAVE ABNORMALITY Compared to ECG 07/05/2018 21:21:16 T-wave abnormality now present Electronically Signed On 03-09-2022 20:15:35 CDT by Enrique Mandujano M.D. [id number]
--- NOTE | 2022-03-09 13:15 | ED_ITS ---
HPI - Fall General: Chief Complaint: Fall Stated Complaint: WEAKNESS Time Seen by Provider: 03/09/22 13:10 Source: patient Mode of arrival: ambulatory Limitations: no limitations History of Present Illness: 87-year-old male has a history of dementia states he was sitting in his recliner last night and slid out was unable to get up. He states he is got bilateral hip pain denies any other injuries he is alert to self able answer most my questions is at his baseline dementia disoriented to time and place. He has no headache states has had some slight weakness no fever no vomiting no diarrhea Associated symptoms-after fall: Denies abdominal pain, chest pain or headache(s) Review of Systems Const: Denies: fever(s), chills, body aches or change in appetite Eyes: Denies: blurry vision or eye discomfort ENMT: Denies: throat pain or dental pain Card: Denies: chest pain Resp: Denies: dyspnea GI: Denies: abdominal pain, nausea, vomiting or diarrhea : Denies: dysuria Musc: Reports: extremity pain Skin/Breast: Denies: rash Neuro: Denies: headache(s) Psych: Denies: depression Lester/Lymph: Denies: easy bruising All/Imm: Denies: urticaria PFSH ED PFSH: Medical History (Updated 03/09/22 @ 14:10 by Franci Shelton MD) Hx of radiation therapy Prostate cancer Urinary retention Social History Smoking and tobacco status: former smoker Alcohol intake: unknown Adopted: No Caregiver/support person: No Lives independently: Yes Marital status: Single Current occupational status: retired Physical Exam Const: COMMON NORMALS: no acute distress and healthy appearing; negative for patient oriented x3 HENMT: COMMON NORMALS: normocephalic and atraumatic HEAD & SCALP: normocephalic and atraumatic Eye: COMMON NORMALS: Equal, round and reactive pupils present and EOMs intact bilaterally PUPIL: Yes Equal, round and reactive pupils present Neck/C-Spine: COMMON NORMALS: full ROM and supple Chest: COMMONS NORMALS: normal inspection of the chest and normal palpation of entire chest wall Resp: COMMON NORMALS: normal respiratory effort, No retractions, No use of accessory muscles and clear to auscultation bilaterally AUSCULTATION: clear t o auscultation bilaterally Cardio: COMMON NORMALS: regular rate, regular rhythm and No murmurs present (Cardio) RATE: regular rate RHYTHM: regular rhythm GI: COMMON NORMALS: Normal to inspection, nondistended, normoactive bowel sounds present, Soft to palpation, non-tender and no masses PALPATION: Yes Soft to palpation Extremity: COMMON NORMALS: normal to inspection and full ROM Neuro: COMMON NORMALS: moves all extremities and no focal motor deficits; negative for patient oriented x3 Psych: COMMON NORMALS: mental status grossly normal, Normal thought process present and cooperative THOUGHT PROCESS: Normal thought process present Skin: COMMON NORMALS: no rashes or lesions noted and no wounds GENERAL SKIN EXAM: no rashes or lesions noted Course Vital Signs: Vital signs: Vital Signs Pulse Rate 78 03/09/22 13:30 Respiratory Rate 15 03/09/22 13:30 Blood Pressure 131/77 03/09/22 13:30 Pulse Oximetry 97 03/09/22 13:30 MDM - Fall Medical Decision Making Patient presents with a fall got bilateral hip pain blood work here is all normal he does have a history of dementia patient's family is here and will discharge him within he has no signs of head injury he is to follow-up his PCP and return if worsening. Lab Data : 03/09/22 13:37 03/09/22 13:37 Radiology Impressions Pelvis X-Ray 03/09/22 13:12 IMPRESSION: No acute findings. Laboratory Results WBC 5.8 10^3/uL (4.0-10.0) 03/09/22 13:37 RBC 3.85 10^6/uL (4.1-5.3) L 03/09/22 13:37 Hgb 14.1 g/dL (11.7-16.6) 03/09/22 13:37 Hct 39.2 % (42.0-52.0) L 03/09/22 13:37 MCV 101.8 fl (80-94) H 03/09/22 13:37 MCH 36.6 pg (28.0-34.0) H 03/09/22 13:37 MCHC 36.0 g/dL (30.0-36.0) 03/09/22 13:37 RDW 12.9 % (12.1-15.1) 03/09/22 13:37 Plt Count 128 10^3/cmm (130-400) L 03/09/22 13:37 MPV 8.2 fL (7.4-10.4) 03/09/22 13:37 Neut % (Auto) 68.7 % 03/09/22 13:37 Lymph % (Auto) 19.4 % 03/09/22 13:37 [place] % (Auto) 10.0 % 03/09/22 13:37 Eos % (Auto) 0.2 % 03/09/22 13:37 Baso % (Auto) 0.5 % 03/09/22 13:37 Neut # (Auto) 4.00 10^3/uL (1.8-7.7) 03/09/22 13:37 Lymph # (Auto) 1.1 10^3/uL (0.8-4.8) 03/09/22 13:37 [place] # (Auto) 0.6 10^3/uL (0.2-0.9) 03/09/22 13:37 Eos # (Auto) 0.0 10^3/uL (0.0-0.8) 03/09/22 13:37 Baso # (Auto) 0.0 10^3/uL (0.0-0.1) 03/09/22 13:37 Nucleated RBC % (auto) 0 % 03/09/22 13:37 Nucleated RBCs # 0.0 /100WBC 03/09/22 13:37 Sodium 138 mmol/L (136-145) 03/09/22 13:37 Potassium 4.2 mmol/L (3.5-5.1) 03/09/22 13:37 Chloride 101 mmol/L (98-107) 03/09/22 13:37 Carbon Dioxide 24 mmol/L (22-29) 03/09/22 13:37 Anion Gap 17.2 (5-19) 03/09/22 13:37 BUN 15 mg/dL (8-23) 03/09/22 13:37 Creatinine 0.7 mg/dL (0.7-1.2) 03/09/22 13:37 GFR Calculation Not Reportable 03/09/22 13:37 Glucose 151 mg/dL (65-115) H 03/09/22 13:37 Calculated Osmolality 290 mOsm/kg (285-295) 03/09/22 13:37 Calcium 9.2 mg/dL (8.5-10.5) 03/09/22 13:37 EKG Data EKG 1: I personally reviewed and interpreted this EKG as follows: EKG interpretation date: 03/09/22 EKG interpretation time: 13:15 Interpretation: nsr hr [address] or t wave abnromalities qrs 92 qtc 419 Discharge Plan Discharge Patient Disposition: Home Clinical Impression: Fall Condition: Stable Prescriptions: No Action aspirin [Adult Low Dose Aspirin] 81 mg tablet,delayed release (DR/EC) 81 mg PO DAILY 0RF cholecalciferol (vitamin D3) 50 mcg (2,000 unit) capsule 50 mcg PO DAILY 0RF carbidopa-levodopa 23.75-95 mg capsule, extended release 1 cap PO DAILY 0RF donepezil 10 mg tablet 10 mg PO DAILY 0RF tamsulosin 0.4 mg capsule See Rx Instructions .ROUTE .COMPLEX Qty: 90 3RF Dose Instruction: Take 1 capsule by mouth once daily Rx Instructions: Take 1 capsule by mouth once daily Discharge Orders: Discharge ED (Routine); Ordered 03/09/22 Ordered By: Franci Shelton Referrals: Mike Mcmanus, DO [Primary Care Provider] - Discharge Diet: Advance as tolerated Discharge Activity: Resume usual activity Patient Instructions: Fall Prevention (ED) Coding Level of Care Code ED Complaints Coordinator for Saulg Fwd Exam Comprehensive
[2022-03-09 13:30] VITALS: BP 131/77; PULSE 78; RESP 15; O2SAT 97
--- NOTE | 2022-03-09 13:45 | PC.NURSE ---
PT REPORTS A GRADUAL SLIDE INTO THE FLOOR LAST NIGHT AROUND 2100. PT REPORTS LYING IN THE FLOOR UNTIL THIS MORNING. PT IS A&OX4 ANSWERING ALL QUESTIONS APPROPRIATELY. PT SKIN IS WARM DRY AND PINK. PT CO BILAT HIP AND KNEE PAIN THAT IS CHRONIC. PT DENIES ANY FURTHER CO. PT BREATHING IS NONLABORED. RATE AND RHYTHM ARE WNL.
[2022-03-09 13:49] LABS: Basophils % 0.5 %; Eosinophils % 0.2 %; Hematocrit 39.2 % (42.0-52.0); Hemoglobin 14.1 g/dL (11.7-16.6); Lymphocytes # 1.1 10^3/uL (0.8-4.8); Lymphocytes % 19.4 %; Mean Corpuscular Hemoglobin 36.6 pg (28.0-34.0); Mean Corpuscular Volume 101.8 fl (80-94); Mean Platelet Volume 8.2 fL (7.4-10.4); Monocytes # 0.6 10^3/uL (0.2-0.9); Neutrophils % 68.7 %; Nucleated Red Blood Cells % 0 %; Platelet Count 128 10^3/cmm (130-400); Red Blood Count 3.85 10^6/uL (4.1-5.3); Red Cell Distribution Width 12.9 % (12.1-15.1); White Blood Count 5.8 10^3/uL (4.0-10.0)
[2022-03-09 14:07] LABS: Anion Gap 17.2 (5-19); Blood Urea Nitrogen 15 mg/dL (8-23); Calcium 9.2 mg/dL (8.5-10.5); Carbon Dioxide 24 mmol/L (22-29); Chloride 101 mmol/L (98-107); Glucose 151 mg/dL (65-115); Osmolality Calculated 290 mOsm/kg (285-295); Potassium 4.2 mmol/L (3.5-5.1); Sodium 138 mmol/L (136-145)
[2022-03-09] MEDS: HYDROcodone-acetaminophen 5-325 mg Tablet 1 TAB PO (14:26)
[2022-03-09 14:28] VITALS: BP 131/81; PULSE 74; RESP 16; O2SAT 97
== END 2022-03-09 14:50 | disposition home or self-care (01) ==
PROVIDERS: Emergency Provider Emergency Medicine; PCP Emergency Medicine Emergency Medical Services
DX: R53.1 Weakness (principal); F03.90 Unspecified dementia, unspecified severity, without behavioral disturbance, psychotic disturbance, mood disturbance, and anxiety; M25.552 Pain in left hip; M25.551 Pain in right hip; Z79.82 Long term (current) use of aspirin; W07.XXXA Fall from chair, initial encounter
CPT/HCPCS: 72170; 80048; 85025; 93005; 99284

== ENCOUNTER 2022-06-06 15:30 | Observation (INO) | payer OTHER, SELFPAY ==
[2022-06-06 15:36] VITALS: BP 113/70; PULSE 62; RESP 16; TEMP 36.1; O2SAT 96; BMI 26.5
--- NOTE | 2022-06-06 15:52 | CTR_ITS ---
PROCEDURE INFORMATION: Exam: CT Head Without Contrast Exam date and time: 06/06/2022 5:01 PM Age: 87 years old Clinical indication: Altered mental status/memory loss; Additional info: AMS TECHNIQUE: Imaging protocol: Computed tomography of the head without contrast. Radiation optimization: All CT scans at this facility use at least one of these dose optimization techniques: automated exposure control; mA and/or kV adjustment per patient size (includes targeted exams where dose is matched to clinical indication); or iterative reconstruction. COMPARISON: [facility] bone scan whole body* [id number] 07/13/2020 7:28 AM RADIATION DOSE METRICS: Total DLP (mGy-cm): 1124.98 FINDINGS: Brain: Large amount of diffuse white matter disease likely reflecting chronic microvascular ischemic changes. Cerebral ventricles: No ventriculomegaly. Paranasal sinuses: Visualized sinuses are unremarkable. No fluid levels. Mastoid air cells: Visualized mastoid air cells are well aerated. Bones/joints: Unremarkable. No acute fracture. Soft tissues: Unremarkable. CT/CT head wo con* [id number] IMPRESSION: 1. Negative for intracranial hemorrhage or mass effect. 2. Large amount of diffuse white matter disease likely reflecting chronic microvascular ischemic changes.
--- NOTE | 2022-06-06 15:52 | ECG_ITS ---
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 Measurements Intervals [place] Rate: 64 P: 21 [place]: 159 QRS: -20 QRSD: 98 T: 98 QT: 400 QTc: 415 Interpretive Statements SINUS RHYTHM NONSPECIFIC ST & T-WAVE ABNORMALITY Compared to ECG 03/09/2022 13:15:24 No significant changes Electronically Signed On 06-06-2022 22:47:00 CDT by Erika Gonzalez M.D. [id number]
--- NOTE | 2022-06-06 15:52 | XRR_ITS ---
PROCEDURE INFORMATION: Exam: XR Chest Exam date and time: 06/06/2022 4:00 PM Age: 87 years old Clinical indication: Cough and dyspnea; Additional info: Dyspnea/cough TECHNIQUE: Imaging protocol: Radiologic exam of the chest. Views: 1 view. COMPARISON: CR Chest 1 [place] [id number] 07/05/2018 9:42 PM FINDINGS: Lungs: Unremarkable. No consolidation. Pleural spaces: Unremarkable. No pleural effusion. No pneumothorax. Heart/Mediastinum: Unremarkable. No cardiomegaly. Bones/joints: Unremarkable. XR/XR chest 1V portable [id number] IMPRESSION: No acute findings.
[2022-06-06 16:03] LABS: Basophils % 0.4 %; Eosinophils % 0.4 %; Hematocrit 43.9 % (42.0-52.0); Lymphocytes % 50.5 %; Mean Corpuscular HGB Conc 34.2 g/dL (30.0-36.0); Mean Corpuscular Hemoglobin 35.3 pg (28.0-34.0); Mean Corpuscular Volume 103.3 fl (80-94); Mean Platelet Volume 8.5 fL (7.4-10.4); Monocytes # 0.8 10^3/uL (0.2-0.9); Monocytes % 10.1 %; Neutrophils % 37.8 %; Nucleated Red Blood Cells % 0 %; Platelet Count 93 10^3/cmm (130-400); Red Blood Count 4.25 10^6/uL (4.1-5.3); Red Cell Distribution Width 11.7 % (12.1-15.1); White Blood Count 7.9 10^3/uL (4.0-10.0)
--- NOTE | 2022-06-06 16:05 | W.ED.AMS ---
HPI - Altered Mental Status General: Chief Complaint: Altered Mental Status Stated Complaint: DECREASED LOC Time Seen by Provider: 06/06/22 15:40 Source: patient Mode of arrival: EMS History of Present Illness: 87-year-old male who lives at home with help with a nurses aide. Recently has been not been drinking as much or eating as much has been giving him Ensure supplements. Today he was watching television with a day and a niece who is at the bedside with him in the ER. They went to stand up and he got lightheaded and dizzy referred he was about to fall they took him into the bathroom and put him on the bed changes undergarment. He became nonresponsive. Ultimately EMS was called. Initially they said he was little hypoxic he was started on oxygen however when he arrived here were able to titrated off. He is confused and somewhat disoriented which he said is different than his baseline but he denies any physical symptoms at all no chest pain or shortness of breath no abdominal pain dysuria urgency or frequency no nausea or vomiting. MD complaint: confusion PFSH ED PFSH: Medical History (Updated 03/17/22 @ 00:00 by ) Hx of radiation therapy Prostate cancer Urinary retention Social History Smoking and tobacco status: former smoker Alcohol intake: unknown Adopted: No Caregiver/support person: No Lives independently: Yes Marital status: Single Current occupational status: retired Course Vital Signs: Vital signs: Vital Signs Temperature 97 F L 06/06/22 15:36 Pulse Rate 62 06/06/22 15:36 Respiratory Rate 16 06/06/22 15:36 Blood Pressure 113/70 06/06/22 15:36 Pulse Oximetry 96 06/06/22 15:36 Oxygen Delivery Me thod 06/06/22 15:36 MDM - Altered Mental Status Lab Data : 06/06/22 15:18 06/06/22 15:18 Laboratory Results WBC 7.9 10^3/uL (4.0-10.0) 06/06/22 15:18 RBC 4.25 10^6/uL (4.1-5.3) 06/06/22 15:18 Hgb 15.0 g/dL (11.7-16.6) 06/06/22 15:18 Hct 43.9 % (42.0-52.0) 06/06/22 15:18 MCV 103.3 fl (80-94) H 06/06/22 15:18 MCH 35.3 pg (28.0-34.0) H 06/06/22 15:18 MCHC 34.2 g/dL (30.0-36.0) 06/06/22 15:18 RDW 11.7 % (12.1-15.1) L 06/06/22 15:18 Plt Count 93 10^3/cmm (130-400) L 06/06/22 15:18 MPV 8.5 fL (7.4-10.4) 06/06/22 15:18 Neut % (Auto) 37.8 % 06/06/22 15:18 Lymph % (Auto) 50.5 % 06/06/22 15:18 [place] % (Auto) 10.1 % 06/06/22 15:18 Eos % (Auto) 0.4 % 06/06/22 15:18 Baso % (Auto) 0.4 % 06/06/22 15:18 Neut # (Auto) 3.00 10^3/uL (1.8-7.7) 06/06/22 15:18 Lymph # (Auto) 4.0 10^3/uL (0.8-4.8) 06/06/22 15:18 [place] # (Auto) 0.8 10^3/uL (0.2-0.9) 06/06/22 15:18 Eos # (Auto) 0.0 10^3/uL (0.0-0.8) 06/06/22 15:18 Baso # (Auto) 0.0 10^3/uL (0.0-0.1) 06/06/22 15:18 Nucleated RBC % (auto) 0 % 06/06/22 15:18 Nucleated RBCs # 0.0 /100WBC 06/06/22 15:18 Discharge Plan Discharge Condition: Stable Prescriptions: No Action aspirin [Adult Low Dose Aspirin] 81 mg tablet,delayed release (DR/EC) 81 mg PO DAILY cholecalciferol (vitamin D3) 50 mcg (2,000 unit) capsule 50 mcg PO DAILY carbidopa-levodopa 23.75-95 mg capsule, extended release 1 cap PO DAILY donepezil 10 mg tablet 10 mg PO DAILY tamsulosin 0.4 mg capsule See Rx Instructions .ROUTE .COMPLEX Qty: 90 3RF Dose Instruction: Take 1 capsule by mouth once daily Rx Instructions: Take 1 capsule by mouth once daily Referrals: Mike Mcmanus DO [Primary Care Provider] - Coding Level of Care Code ED [employer]otive Parts Advisor for Allison Whitten
--- NOTE | 2022-06-06 16:17 | ED_ITS ---
Documented by User: Danny Sharma DO 06/07/22 10:47 HPI - General Adult General: Chief complaint: Neuro Symptoms/Deficit Stated complaint: DECREASED LOC Time Seen by Provider: 06/06/22 15:40 Source: patient Mode of arrival: EMS History of Present Illness: 87-year-old male who lives at home with help with a nurses aide. Recently has been not been drinking as much or eating as much has been giving him Ensure supplements. Today he was watching television with a day and a niece who is at the bedside with him in the ER. They went to stand up and he got lightheaded and dizzy referred he was about to fall they took him into the bathroom and put him on the bed changes undergarment. He became nonresponsive. Ultimately EMS was called. Initially they said he was little hypoxic he was started on oxygen however when he arrived here were able to titrated off. He is confused and somewhat disoriented which he said is different than his baseline but he denies any physical symptoms at all no chest pain or shortness of breath no abdominal pain dysuria urgency or frequency no nausea or vomiting. Onset (ago): hour(s) Radiation: non-radiation Severity: moderate Pain Consistency: constant Relieving factors: none Exacerbating factors: none Associated symptoms: Reports decreased appetite; Deny chest pain, confusion, cough, diaphoresis, dyspnea, fevers/chills, headache(s), malaise, nausea, rash, palpitations, seizures, short of breath, syncope, vomiting or weakness Treatments prior to arrival: none Review of Systems Const: Denies: fever(s), chills, fatigue, malaise or diaphoresis ENMT: Denies: throat pain, ear or mastoid pain, nasal discharge or nasal congestion Card: Denies: chest pain, palpitations or syncope Resp: Denies: dyspnea, productive cough, non-productive cough or wheezing GI: Denies: abdominal pain, nausea or vomiting : Denies: flank pain, difficulty urinating, dysuria, urinary frequency or urinary urgency Musc: Denies: neck pain or back pain Skin/Breast: Denies: rash or pruritus Neuro: Denies: headache(s) or confusion PFSH ED PFSH: Medical History (Updated 06/06/22 @ 20:04 by Rusty Garcia MD) Hx of radiation therapy Prostate cancer Urinary retention Social History Smoking and tobacco status: former smoker Alcohol intake: unknown Adopted: No Caregiver/support person: No Lives independently: Yes Marital status: Single Current occupational status: retired Physical Exam Const: COMMON NORMALS: no acute distress GENERAL APPEARANCE: cooperative and comfortable ORIENTATION/CONSCIOUSNESS: Yes awake HENMT: COMMON NORMALS: normocephalic, atraumatic, hearing grossly normal bilaterally, external ears normal, EAC's normal, TM's normal bilaterally, Normal nasal mucous membranes and turbinates present, moist oral mucous membranes and oropharynx normal HEAD & SCALP: normocephalic and atraumatic NOSE: Normal nasal mucous membranes and turbinates present EXTERNAL EAR: Yes external ears normal EXTERNAL AUDITORY CANAL: EAC's normal TYMPANIC MEMBRANE: TM's normal bilaterally Eye: COMMON NORMALS: Equal, round and reactive pupils present, EOMs intact bilaterally, conjunctivae normal and no scleral icterus CONJUNCTIVA: Yes conjunctivae normal PUPIL: Yes Equal, round and reactive pupils present Resp: COMMON NORMALS: normal respiratory effort, No retractions, No use of accessory muscles and clear to auscultation bilaterally AUSCULTATION: clear to auscultation bilaterally Cardio: COMMON NORMALS: regular rate, regular rhythm and No murmurs present (Cardio) RATE: regular rate RHYTHM: regular rhythm GI: COMMON NORMALS: Soft to palpation and No hepatosplenomegaly present AUSCULTATION: Yes normoactive bowel sounds PALPATION: Yes Soft to palpation, No Tenderness to palpation present (GI), No Guarding due to palpation present (GI) and Yes No hepatosplenomegaly present Extremity: COMMON NORMALS: normal to inspection, capillary refill normal, no clubbing, cyanosis or edema, no calf tenderness and no pedal edema Skin: COMMON NORMALS: no rashes or lesions noted GENERAL SKIN EXAM: no rashes or lesions noted Course Vital Signs: Vital signs: Vital Signs Temperature 97.4 F L 06/07/22 07:29 Pulse Rate 68 06/07/22 07:29 Respiratory Rate 16 06/07/22 07:29 Blood Pressure 139/70 06/07/22 07:29 Pulse Oximetry 95 06/07/22 07:29 Oxygen Delivery Me thod 06/07/22 07:29 MDM - General Adult Medical Decision Making Care signed out to Dr. Shelton at change of shift. See final notes for diagnosis and disposition. Patient presents here with weakness likely from acute cystitis patient is well- appearing here but is quite weak is unable to ambulate on his own spoke to hospitalist will admit for IV antibiotics at this time. Lab Data : 06/07/22 03:24 06/07/22 03:24 Radiology Impressions Chest X-Ray 06/06/22 15:52 IMPRESSION: No acute findings. Head CT 06/06/22 15:52 IMPRESSION: 1. Negative for intracranial hemorrhage or mass effect. 2. Large amount of diffuse white matter disease likely reflecting chronic microvascular ischemic changes. Laboratory Results WBC 7.9 10^3/uL (4.0-10.0) 06/06/22 15:18 RBC 4.25 10^6/uL (4.1-5.3) 06/06/22 15:18 Hgb 15.0 g/dL (11.7-16.6) 06/06/22 15:18 Hct 43.9 % (42.0-52.0) 06/06/22 15:18 MCV 103.3 fl (80-94) H 06/06/22 15:18 MCH 35.3 pg (28.0-34.0) H 06/06/22 15:18 MCHC 34.2 g/dL (30.0-36.0) 06/06/22 15:18 RDW 11.7 % (12.1-15.1) L 06/06/22 15:18 Plt Count 93 10^3/cmm (130-400) L 06/06/22 15:18 MPV 8.5 fL (7.4-10.4) 06/06/22 15:18 Neut % (Auto) 37.8 % 06/06/22 15:18 Lymph % (Auto) 50.5 % 06/06/22 15:18 [place] % (Auto) 10.1 % 06/06/22 15:18 Eos % (Auto) 0.4 % 06/06/22 15:18 Baso % (Auto) 0.4 % 06/06/22 15:18 Neut # (Auto) 3.00 10^3/uL (1.8-7.7) 06/06/22 15:18 Lymph # (Auto) 4.0 10^3/uL (0.8-4.8) 06/06/22 15:18 [place] # (Auto) 0.8 10^3/uL (0.2-0.9) 06/06/22 15:18 Eos # (Auto) 0.0 10^3/uL (0.0-0.8) 06/06/22 15:18 Baso # (Auto) 0.0 10^3/uL (0.0-0.1) 06/06/22 15:18 Nucleated RBC % (auto) 0 % 06/06/22 15:18 Nucleated RBCs # 0.0 /100WBC 06/06/22 15:18 D-Dimer 1.38 ug/mIFEU (0-0.59) H 06/06/22 15:18 Sodium 136 mmol/L (136-145) 06/06/22 15:18 Potassium 3.9 mmol/L (3.5-5.1) 06/06/22 15:18 Chloride 99 mmol/L (98-107) 06/06/22 15:18 Carbon Dioxide 26 mmol/L (22-29) 06/06/22 15:18 Anion Gap 14.9 (5-19) 06/06/22 15:18 BUN 13 mg/dL (8-23) 06/06/22 15:18 Creatinine 0.8 mg/dL (0.7-1.2) 06/06/22 15:18 GFR Calculation Not Reportable 06/06/22 15:18 Glucose 154 mg/dL (65-115) H 06/06/22 15:18 Calculated Osmolality 285 mOsm/kg (285-295) 06/06/22 15:18 Lactic Acid 3.0 mmol/L (0.5-2.2) H 06/06/22 17:10 Lactic Acid (Sepsis) 3.0 mmol/L (0.5-2.2) H 06/06/22 20:39 Calcium 8.9 mg/dL (8.5-10.5) 06/06/22 15:18 Phosphorus 3.1 mg/dL (2.5-4.5) 06/06/22 17:10 Magnesium 2.1 mg/dL (1.7-2.3) 06/06/22 17:10 Total Bilirubin 0.4 mg/dL (0.15-1.2) 06/06/22 15:18 AST 23 U/L (0-40) 06/06/22 15:18 ALT 11 U/L (0-41) 06/06/22 15:18 Alkaline Phosphatase 45 U/L (40-130) 06/06/22 15:18 Troponin T Baseline 11 ng/L (0-15) 06/06/22 15:18 Troponin T 120 Minute 10.14 ng/L (0-15) 06/06/22 17:10 Delta Troponin T -0.86 ABS# (0-10) L 06/06/22 17:10 Troponin T Hi Sens 6Hr 11.23 ng/L (0-15) 06/06/22 20:39 Troponin T Hi Sens 6Hr Delta 0.23 ng/L (0-12) 06/06/22 20:39 C-Reactive Protein 10.2 mg/L (0.0-4.9) H 06/06/22 17:10 NT-Pro-B Natriuret Pep 206 pg/mL (0-450) 06/06/22 17:10 Total Protein 6.5 g/dL (6.6-8.7) L 06/06/22 15:18 Albumin 3.0 g/dL (3.5-5.2) L 06/06/22 15:18 Globulin 3.5 g/dL (1.3-4.6) 06/06/22 15:18 Lipase 14 U/L (13-60) 06/06/22 15:18 Procalcitonin 0.07 ng/mL (0-0.5) 06/06/22 17:10 TSH 22.66 uIU/mL (0.27-4.20) H 06/06/22 17:10 Urine Color Yellow (Yellow) 06/06/22 18:55 Urine Appearance Clear (CLEAR) 06/06/22 18:55 Urine pH 5 (5-7) 06/06/22 18:55 Ur Specific [place] 1.030 (1.005-1.030) 06/06/22 18:55 Urine Protein 3+ (Negative) H 06/06/22 18:55 Urine Glucose (UA) 2+ (Normal) H 06/06/22 18:55 Urine Ketones 2+ (Negative) H 06/06/22 18:55 Urine Blood 3+ (Negative) H 06/06/22 18:55 Urine Nitrate Positive (Negative) H 06/06/22 18:55 Urine Bilirubin 1+ (Negative) H 06/06/22 18:55 Urine Urobilinogen Norm mg/dL (Negative) 18 18:55 Ur Leukocyte Esterase 2+ (Negative) H 06/06/22 18:55 Urine RBC 0-4 /hpf (0-2) H 06/06/22 18:55 Urine WBC Too numerous to cnt /hpf (0-5) H 18 18:55 Ur Squamous Epith Cells 0-4 /hpf (0-5) H 06/06/22 18:55 Amorphous Sediment Not Reportable 06/06/22 18:55 Urine Bacteria 3+ /hpf (NONE) H 06/06/22 18:55 Discharge Plan Discharge Patient Disposition: Admitted As Inpatient Admit Provider: Rusty Garcia Clinical Impression: Acute cystitis, Weakness Condition: Stable Coding Level of Care Code ED Mending Carrier for Chg Fwd Exam Comprehensive Documented by User: Franci Shelton MD 06/06/22 19:52 HPI - General Adult General: Chief complaint: Neuro Symptoms/Deficit Stated complaint: DECREASED LOC Time Seen by Provider: 06/06/22 15:40 PFSH ED PFSH: Medical History (Updated 06/06/22 @ 20:04 by Rusty Garcia MD) Hx of radiation therapy Prostate cancer Urinary retention Social History Smoking and tobacco status: former smoker Alcohol intake: unknown Adopted: No Caregiver/support person: No Lives independently: Yes Marital status: Single Current occupational status: retired Course Vital Signs: Vital signs: Vital Signs Temperature 97.4 F L 06/07/22 07:29 Pulse Rate 68 06/07/22 07:29 Respiratory Rate 16 06/07/22 07:29 Blood Pressure 139/70 06/07/22 07:29 Pulse Oximetry 95 06/07/22 07:29 Oxygen Delivery Me thod 06/07/22 07:29 MDM - General Adult Medical Decision Making Patient presents here with weakness likely from acute cystitis patient is well- appearing here but is quite weak is unable to ambulate on his own spoke to hospitalist will admit for IV antibiotics at this time. Lab Data : 06/07/22 03:24 06/07/22 03:24 Radiology Impressions Chest X-Ray 06/06/22 15:52 IMPRESSION: No acute findings. Head CT 06/06/22 15:52 IMPRESSION: 1. Negative for intracranial hemorrhage or mass effect. 2. Large amount of diffuse white matter disease likely reflecting chronic microvascular ischemic changes. Laboratory Results WBC 7.9 10^3/uL (4.0-10.0) 06/06/22 15:18 RBC 4.25 10^6/uL (4.1-5.3) 06/06/22 15:18 Hgb 15.0 g/dL (11.7-16.6) 06/06/22 15:18 Hct 43.9 % (42.0-52.0) 06/06/22 15:18 MCV 103.3 fl (80-94) H 06/06/22 15:18 MCH 35.3 pg (28.0-34.0) H 06/06/22 15:18 MCHC 34.2 g/dL (30.0-36.0) 06/06/22 15:18 RDW 11.7 % (12.1-15.1) L 06/06/22 15:18 Plt Count 93 10^3/cmm (130-400) L 06/06/22 15:18 MPV 8.5 fL (7.4-10.4) 06/06/22 15:18 Neut % (Auto) 37.8 % 06/06/22 15:18 Lymph % (Auto) 50.5 % 06/06/22 15:18 [place] % (Auto) 10.1 % 06/06/22 15:18 Eos % (Auto) 0.4 % 06/06/22 15:18 Baso % (Auto) 0.4 % 06/06/22 15:18 Neut # (Auto) 3.00 10^3/uL (1.8-7.7) 06/06/22 15:18 Lymph # (Auto) 4.0 10^3/uL (0.8-4.8) 06/06/22 15:18 [place] # (Auto) 0.8 10^3/uL (0.2-0.9) 06/06/22 15:18 Eos # (Auto) 0.0 10^3/uL (0.0-0.8) 06/06/22 15:18 Baso # (Auto) 0.0 10^3/uL (0.0-0.1) 06/06/22 15:18 Nucleated RBC % (auto) 0 % 06/06/22 15:18 Nucleated RBCs # 0.0 /100WBC 06/06/22 15:18 D-Dimer 1.38 ug/mIFEU (0-0.59) H 06/06/22 15:18 Sodium 136 mmol/L (136-145) 06/06/22 15:18 Potassium 3.9 mmol/L (3.5-5.1) 06/06/22 15:18 Chloride 99 mmol/L (98-107) 06/06/22 15:18 Carbon Dioxide 26 mmol/L (22-29) 06/06/22 15:18 Anion Gap 14.9 (5-19) 06/06/22 15:18 BUN 13 mg/dL (8-23) 06/06/22 15:18 Creatinine 0.8 mg/dL (0.7-1.2) 06/06/22 15:18 GFR Calculation Not Reportable 06/06/22 15:18 Glucose 154 mg/dL (65-115) H 06/06/22 15:18 Calculated Osmolality 285 mOsm/kg (285-295) 06/06/22 15:18 Lactic Acid 3.0 mmol/L (0.5-2.2) H 06/06/22 17:10 Lactic Acid (Sepsis) 3.0 mmol/L (0.5-2.2) H 06/06/22 20:39 Calcium 8.9 mg/dL (8.5-10.5) 06/06/22 15:18 Phosphorus 3.1 mg/dL (2.5-4.5) 06/06/22 17:10 Magnesium 2.1 mg/dL (1.7-2.3) 06/06/22 17:10 Total Bilirubin 0.4 mg/dL (0.15-1.2) 06/06/22 15:18 AST 23 U/L (0-40) 06/06/22 15:18 ALT 11 U/L (0-41) 06/06/22 15:18 Alkaline Phosphatase 45 U/L (40-130) 06/06/22 15:18 Troponin T Baseline 11 ng/L (0-15) 06/06/22 15:18 Troponin T 120 Minute 10.14 ng/L (0-15) 06/06/22 17:10 Delta Troponin T -0.86 ABS# (0-10) L 06/06/22 17:10 Troponin T Hi Sens 6Hr 11.23 ng/L (0-15) 06/06/22 20:39 Troponin T Hi Sens 6Hr Delta 0.23 ng/L (0-12) 06/06/22 20:39 C-Reactive Protein 10.2 mg/L (0.0-4.9) H 06/06/22 17:10 NT-Pro-B Natriuret Pep 206 pg/mL (0-450) 06/06/22 17:10 Total Protein 6.5 g/dL (6.6-8.7) L 06/06/22 15:18 Albumin 3.0 g/dL (3.5-5.2) L 06/06/22 15:18 Globulin 3.5 g/dL (1.3-4.6) 06/06/22 15:18 Lipase 14 U/L (13-60) 06/06/22 15:18 Procalcitonin 0.07 ng/mL (0-0.5) 06/06/22 17:10 TSH 22.66 uIU/mL (0.27-4.20) H 06/06/22 17:10 Urine Color Yellow (Yellow) 06/06/22 18:55 Urine Appearance Clear (CLEAR) 06/06/22 18:55 Urine pH 5 (5-7) 06/06/22 18:55 Ur Specific [place] 1.030 (1.005-1.030) 06/06/22 18:55 Urine Protein 3+ (Negative) H 06/06/22 18:55 Urine Glucose (UA) 2+ (Normal) H 06/06/22 18:55 Urine Ketones 2+ (Negative) H 1822 18:55 Urine Blood 3+ (Negative) H 1822 18:55 Urine Nitrate Positive (Negative) H 1822 18:55 Urine Bilirubin 1+ (Negative) H 1822 18:55 Urine Urobilinogen Norm mg/dL (Negative) 18 18:55 Ur Leukocyte Esterase 2+ (Negative) H 06/06/22 18:55 Urine RBC 0-4 /hpf (0-2) H 1822 18:55 Urine WBC Too numerous to cnt /hpf (0-5) H 1822 18:55 Ur Squamous Epith Cells 0-4 /hpf (0-5) H 18 18:55 Amorphous Sediment Not Reportable 1822 18:55 Urine Bacteria 3+ /hpf (NONE) H 1822 18:55 Discharge Plan Discharge Patient Disposition: Admitted As Inpatient Admit Provider: Rusty Garcia Clinical Impression: Acute cystitis, Weakness Condition: Stable Coding Level of Care Code ED Mending Carrier for Chg Fwd Exam Comprehensive
[2022-06-06 16:34] LABS: Alanine Aminotransferase 11 U/L (0-41); Alkaline Phosphatase 45 U/L (40-130); Anion Gap 14.9 (5-19); Aspartate Amino Transferase 23 U/L (0-40); Blood Urea Nitrogen 13 mg/dL (8-23); Calcium 8.9 mg/dL (8.5-10.5); Carbon Dioxide 26 mmol/L (22-29); Chloride 99 mmol/L (98-107); Globulin 3.5 g/dL (1.3-4.6); Glucose 154 mg/dL (65-115); Lipase 14 U/L (13-60); Osmolality Calculated 285 mOsm/kg (285-295); Potassium 3.9 mmol/L (3.5-5.1); Sodium 136 mmol/L (136-145); Total Bilirubin 0.4 mg/dL (0.15-1.2); Total Protein 6.5 g/dL (6.6-8.7)
[2022-06-06 16:35] LABS: Troponin(5th) Baseline 11 ng/L (0-15)
[2022-06-06 16:58] VITALS: BP 223/80; PULSE 80; RESP 16; O2SAT 98; BMI 19.5
[2022-06-06 17:40] VITALS: BP 135/80; PULSE 63; RESP 17; O2SAT 100
[2022-06-06 17:53] LABS: Troponin 5 2HR 10.14 ng/L (0-15)
--- NOTE | 2022-06-06 17:57 | ECG_ITS ---
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 Measurements Intervals [place] Rate: 63 P: 10 MI: 154 QRS: -21 QRSD: 98 T: 84 QT: 399 QTc: 410 Interpretive Statements SINUS RHYTHM BORDERLINE LEFT AXIS DEVIATION [QRS AXIS < -20] NONSPECIFIC ST & T-WAVE ABNORMALITY Compared to ECG 06/06/2022 16:20:14 No significant changes Electronically Signed On 06-06-2022 22:57:26 CDT by Erika Gonzalez M.D. [email or web address]
[2022-06-06 18:29] LABS: Troponin 5 2HR Delta -0.86 ABS# (0-10)
[2022-06-06 18:30] VITALS: BP 142/85; PULSE 70; RESP 16; O2SAT 99
[2022-06-06] MEDS: sodium chloride 0.9% 500 ML 999 ML IV (18:55)
[2022-06-06 19:02] LABS: Reflex Lactate Order REFLEX LACTIC ORDERD
[2022-06-06 19:08] LABS: Urine Appearance Clear (CLEAR); Urine Color Yellow (Yellow); pH Urine 5 (5-7)
[2022-06-06 19:09] LABS: Add Urine Microscopic? YES; Bilirubin Urine 1+ (Negative); Blood Urine 3+ (Negative); Glucose Urine UA 2+ (Normal); Ketones Urine 2+ (Negative); Leukocyte Esterase Urine 2+ (Negative); Nitrate Urine Positive (Negative); Protein Urine 3+ (Negative); Urobilinogen Urine Norm (Negative)
[2022-06-06 19:12] LABS: Add Urine Culture? Yes; Bacteria Urine 3+ /hpf; RBC Urine 0-4 /hpf (0-2); Squamous Epithelial Cell Urine 0-4 /hpf (0-5); WBC Urine TOO NUMEROUS TO CNT /hpf (0-5)
--- NOTE | 2022-06-06 19:56 | USCV_ITS ---
Blayne Sanford Age: 87 Gender: M : 1935 Exam Date: 06/06/2022 21:53 Ordering Phys: Rusty Garcia MD Technologist: JESSE [place] [facility] [place]: unresponsive Risk Factors: Previous Vascular Surgery: unknown Right Brachial BP: / Left Brachial BP: / Right Left Velocity (cm/s) Spectral Plaque Velocity (cm/s) Spectral Plaque Syst/Diast Broadening Syst/Diast Broadening 92.60/ 14.30 Min None Prox CCA 51.30 / 9.90 Min None 79.40/ 16.50 Min None Mid CCA 67.00 / 13.10 Min None 89.30/ 14.30 Min None Distal CCA 79.50 / 18.40 Min None 45.40/ 13.10 Min Homo Prox ICA 51.90 / 10.50 Min Homo 59.20/ 16.40 Min None Mid ICA 51.90 / 15.80 Min None 67.70/ 19.70 Min None Distal ICA 64.40 / 21.00 Min None 80.50 Min ECA 76.20 Min None 0.73 ICA/CCA 0.81 Antegrade Vertebral Antegrade 39.40/ 7.20 cm/s 46.00/ 9.20 cm/s Tri Subclavian Tri 46.00 CONCLUSIONS Right ICA stenosis <50%. Mild atheromatous plaque right carotid bulb/ICA. Left ICA stenosis <50%. Mild atheromatous plaque left carotid bulb/ICA. Normal antegrade Doppler flow noted in the right vertebral artery. Normal antegrade Doppler flow noted in the left vertebral artery. Bright Hernandez MD (Electronically Signed) Final Date: 07 June 2022 11:20 S
--- NOTE | 2022-06-06 19:56 | USCV_ITS ---
Blayne Sanford Age: 87 Gender: M : 1935 Exam Date: 06/06/2022 22:24 Ordering Phys: Rusty Garcia MD Technologist: JESSE Exam Location: [facility] – [place] Indication: unresponsive BP: 142 / 85 HR: 70 Rhythm: Sinus Technical Quality: Adequate MEASUREMENTS (Male / Female) Normal Values 2D ECHO LV Diastolic Diameter PLAX 4.8 cm 4.2 - 5.9 / 3.9 - 5.3 cm LV Systolic Diameter PLAX 3.2 cm IVS Diastolic Thickness 1.3 cm 0.6 - 1.0 / 0.6 - 0.9 cm IVS Systolic Thickness 1.5 cm LVPW Diastolic Thickness 1.2 cm 0.6 - 1.0 / 0.6 - 0.9 cm LVPW Systolic Thickness 1.3 cm LVOT Diameter 2.1 cm LV Ejection Fraction 2D Teich 63.4 % LV Ejection Fraction MOD 2C 58.5 % LV Ejection Fraction 2C AL 63.1 % LA Diameter 3.2 cm LA Width 3.9 cm LA Height 3.7 cm RA Width 2.7 cm RA Height 4.0 cm Aorta at Sinotubular Diameter 3.1 cm IVC Diameter 0.9 cm M-MODE Aortic Annulus Diameter 2.6 cm LA Ao Ratio MM 1.2 MV E Point Septal Separation 0.6 cm DOPPLER AV Peak Velocity 103.0 cm/s LVOT Peak Velocity 77.0 cm/s AV Area Cont Eq vti 2.9 cm squared AV Area Cont Eq pk 2.7 cm squared MV Area PHT 4.3 cm squared Mitral E to A Ratio 0.7 MV E' Velocity 33.5 cm/s Mitral E to MV E' Ratio 8.4 Mitral E to LV E' Lateral Ratio 7.4 Mitral E to LV E' Septal Ratio 9.8 TR Peak Velocity 211.0 cm/s TR Peak Gradient 17.8 mmHg TV Peak E Velocity 57.0 cm/s Right Atrial Pressure 5.0 mmHg Pulmonary Artery Systolic Pressu 22.8 mmHg PV Peak Velocity 82.0 cm/s RV Acceleration Time 0.1 s RV Ejection Time 0.3 s RV AcT/ET 0.3 FINDINGS Left Ventricle Technically limited quality echocardiogram. LV systolic function is grossly normal. Grade 1 diastolic dysfunction is seen. Right Ventricle Grossly normal Right Atrium Normal in size Left Atrium Normal in size Mitral Valve Grossly normal. Aortic Valve Aortic valve is thickened. No significant aortic stenosis. No significant regurgitation seen. Tricuspid Valve There is trace tricuspid regurgitation. Insufficient TR jet to calculate RVSP. Pulmonic Valve Grossly normal Pericardium Normal Aorta Normal in size IVC CONCLUSIONS This is technically limited quality echocardiogram because of poor ultrasonic windows. LV systolic function is grossly normal. Grade 1 diastolic dysfunction Aortic valve is thickened. Trace tricuspid regurgitation No comparison studies are available Enrique Mandujano MD (Electronically Signed) Final Date: 07 June 2022 16:56 S
--- NOTE | 2022-06-06 19:59 | P.HP_ITS ---
Providers/Chief Complaint Primary Care Provider: Mike Mcmanus DO Chief Complaint: DECREASED LOC History of Present Illness Blayne Sanford is a 87 year old male with a past medical history of dementia, history of prostate cancer status post radiation therapy, history of urinary retention, who presents [facility] due to unresponsive episode. Currently patient is alert to person, not to place, not to time, he does follow commands, he has short-term memory loss, he does recognize his niece at bedside who is his healthcare power of regulatory attorney. He has no complaints, denies any chest pain, no shortness of breath, no abdominal pain, no nausea, no vomiting, no back pain. His niece at bedside tells me that he lives with her and her family, he is now bedbound, Liz lift, he has progressive dementia, he is managed by the [facility], recently has been having a [facility], but [facility] was particularly said. He has been having some episodes of choking and coughing. According to patient's niece, this afternoon, heard her was getting him up from the sofa to get him changed, when he suddenly got limp, and nonresponsive, they got him back into the sofa, and he looked pale, she tells me that he was grunting, so they eventually got him into bed, she tells me that he was gasping for breath, he was gurgling in terms of his breathing, pale, diaphoretic. She does me she honestly thought he was going to pass away. EMS was called, he was placed on oxygen. She denies any facial droop no slurring of his words, more generalized weakness and unresponsiveness. He had no postictal confusion. No seizure-like episodes. Review of Systems Card: Denies: chest pain Resp: Denies: dyspnea GI: Denies: abdominal pain Neuro: Reports: weakness in extremities; Denies: headache(s), Slurred speech present or seizure-like activity Medications/Allergies Home Medications Medication Instructions Recorded Confirmed Last Taken Type aspirin 81 mg tablet,delayed 81 mg PO DAILY 06/27/20 06/06/22 06/06/22 History release (Adult Low Dose Aspirin) cholecalciferol (vitamin D3) 50 50 mcg PO DAILY 06/27/20 06/06/22 06/06/22 History mcg (2,000 unit) capsule donepezil 10 mg tablet 20 mg PO BEDTIME 08/23/21 06/06/22 06/05/22 History divalproex 500 mg tablet,delayed 500 mg PO BID 06/06/22 06/06/22 06/06/22 History release gabapentin 100 mg capsule 100 mg PO BEDTIME 06/06/22 06/06/22 06/05/22 History tamsulosin 0.4 mg capsule 0.4 mg PO BEDTIME 06/06/22 06/06/22 06/05/22 History Allergies Allergy/AdvReac Type Severity Reaction Status Date / Time No Known Allergies Allergy Verified 06/06/22 16:08 PFSH Acute PFSH: Medical History (Updated 06/06/22 @ 20:04 by Rusty Garcia MD) Hx of radiation therapy Prostate cancer Urinary retention Social History Smoking and tobacco status: former smoker Alcohol intake: unknown Adopted: No Caregiver/support person: No Lives independently: Yes Marital status: Single Current occupational status: retired Vitals/I&O/Wt Last Vital Signs Temp 97 F L 06/06/22 15:36 Pulse 70 06/06/22 18:30 Resp 16 06/06/22 18:30 BP 142/85 06/06/22 18:30 Pulse Ox 99 06/06/22 18:30 O2 Del Method 06/06/22 18:30 Weight last 48 hrs Weight 45.359 kg Weight 68.039 kg Physical Exam Const: COMMON NORMALS: no acute distress EXAM LIMITATIONS: altered mental status ORIENTATION/CONSCIOUSNESS: Yes awake and Yes oriented to person; not oriented to place and not oriented to time HENMT: COMMON NORMALS: normocephalic HEAD & SCALP: normocephalic Eye: COMMON NORMALS: Equal, round and reactive pupils present and EOMs intact bilaterally Neck/C-Spine: COMMON NORMALS: no JVD Resp: COMMON NORMALS: normal respiratory effort, No retractions, No use of accessory muscles and clear to auscultation bilaterally AUSCULTATION: clear to auscultation bilaterally Cardio: COMMON NORMALS: no JVD, regular rate, regular rhythm, S1 normal heart sound present and S2 normal heart sound present RATE: regular rate RHYTHM: regular rhythm HEART SOUNDS: S1 normal heart sound present and S2 normal heart sound present GI: COMMON NORMALS: Normal to inspection, nondistended, normoactive bowel sounds present, Soft to palpation, non-tender, No hepatosplenomegaly present, no masses and no bruits PALPATION: Yes Soft to palpation and Yes No hepatosplenomegaly present Extremity: COMMON NORMALS: no calf tenderness and no pedal edema Neuro: OTHER: Difficulty with neurologic testing, difficulty at times following commands, I cannot discern any focal neurologic deficits bilateral upper and lower extremiti es Data : 06/06/22 15:18 06/06/22 15:18 A&P Assessment and plan (1) Acute cystitis: Status: Acute (2) Unresponsive episode: Status: Acute Plan Unresponsive episode -Etiology unclear -Could be orthostatic hypotension -Could be an aspiration event -Consult speech therapy -Patient is bedbound, Liz lift dependent -Continue aspirin -Cardiac echo, carotid artery ultrasound -He is requiring oxygen, he did look pale, diaphoretic, required oxygen, no calf pain, no calf swelling, but possibility of pulmonary embolism? We will do a D- dimer, and a venous ultrasound -Neurochecks, NIH stroke scale, aspiration cautions -Serial EKGs serial troponins, telemetry monitoring CT head -1. Negative for intracranial hemorrhage or mass effect. 2. Large amount of diffuse white matter disease likely reflecting chronic microvascular ischemic changes. Elevated lactic acid, possibly secondary dehydration, monitor lactic acids, IV fluids History of dementia, continue to monitor Has a tremor, on examination, diffuse upper extremity, seems more like a parkinsonian tremor has not been formally diagnosed Thrombocytopenia, continue to monitor Urinary tract infection, continue Rocephin DNR/DNI, confirmed with niece at bedside who is healthcare power of regulatory attorney Lovenox for DVT prophylaxis Attestations Medical Necessity Statement*: Patient requires hospitalization, outpatient with observation for unresponsive episode Coding Level of Care Code Acute Motion Picture Set Up Worker for [facility] Maria Dolores Diagnoses Acute cystitis N30.00 Unresponsive episode R41.89
--- NOTE | 2022-06-06 20:07 | USCV_ITS ---
Blayne Sanford Age: 87 Gender: M : 1935 Exam Date: 06/06/2022 21:26 Ordering Phys: Rusty Garcia MD Technologist: JESSE Exam Location: [facility] – [place] Indication: unresponsive HISTORY: unresponsive PROCEDURES: Venous duplex imaging was performed in bilateral lower extremities. The venous duplex Doppler examination of both lower extremities was performed in the standard fashion. The following venous structures were evaluated: common femoral vein, profunda vein, proximal portion of the greater saphenous vein, superficial femoral vein, and the popliteal vein. In addition, the posterior tibial veins were evaluated. Serial compression, augmentation maneuvers, and spectral Doppler flow evaluation were performed, which were normal. Bilaterally, the common femoral, superficial femoral, profunda femoral, popliteal, posterior tibial, and greater saphenous veins were identified and interrogated in the standard fashion. These veins were found to be easily compressible with spontaneous blood flow. No evidence of thrombus noted. CONCLUSIONS No evidence of right lower extremity DVT. No evidence of left lower extremity DVT. Lobulated Right popliteal cyst 4.1 x 1.4cm Bright Hernandez MD (Electronically Signed) Final Date: 07 June 2022 11:18 S
[2022-06-06] MEDS: cefTRIAXone 1,000 MG in sodium chloride 0.9% (plus) 50 ML 100 MG IV (20:19)
[2022-06-06 20:22] LABS: D Dimer 1.38 ug/mIFEU (0-0.59)
[2022-06-06 20:34] LABS: NT Pro B Type Natriuretic Pept 206 pg/mL (0-450); Procalcitonin 0.07 ng/mL (0-0.5); Thyroid Stimulating Hormone 22.66 uIU/mL (0.27-4.20)
[2022-06-06 20:46] LABS: C Reactive Protein 10.2 mg/L (0.0-4.9); Magnesium 2.1 mg/dL (1.7-2.3); Phosphorus 3.1 mg/dL (2.5-4.5)
[2022-06-06 21:21] VITALS: BP 129/84; PULSE 100; RESP 24; TEMP 36.7; O2SAT 92
[2022-06-06 21:26] LABS: Troponin 5 6HR 11.23 ng/L (0-15)
--- NOTE | 2022-06-06 21:28 | ECG_ITS ---
[facility] Test Date: 2022-06-06 Pat Name: Blayne Sanford Department: Room: 250 Gender: Male Leadlighter: : 1935 Requested By: Danny Majano Order Number: [id number] Bill MD: Erika Gonzalez M.D. Measurements Intervals [place] Rate: 93 P: 42 MI: 144 QRS: -44 QRSD: 89 T: 89 QT: 356 QTc: 443 Interpretive Statements SINUS RHYTHM LEFT AXIS DEVIATION [QRS AXIS < -30] NONSPECIFIC ST & T-WAVE ABNORMALITY Compared to ECG 06/06/2022 17:57:32 No significant changes Electronically Signed On 06-06-2022 22:57:51 CDT by Erika Gonzalez M.D. [id number]
[2022-06-06] MEDS: dextrose 5%-sod chloride 0.9% 1,000 ML 75 ML IV (22:29)
[2022-06-06] MEDS: enoxaparin 40 mg/0.4 mL Syringe SUBCUT (23:08)
[2022-06-06 23:09] LABS: Ammonia 17 umol/L (16-60)
[2022-06-06] MEDS: gabapentin 100 mg Capsule PO (23:09)
[2022-06-06] MEDS: tamsulosin 0.4 mg Capsule PO (23:09)
[2022-06-06] MEDS: donepezil 5 MG Tablet 20 MG PO (23:09)
[2022-06-06 23:24] VITALS: O2SAT 92
[2022-06-07] VITALS (10 sets, daily range): BP systolic 113–164; BP diastolic 60–99; PULSE 50–88; RESP 13–19; TEMP 36.3–36.9; O2SAT 95–97
[2022-06-07 00:43] LABS: Troponin 5 6HR Delta 0.23 ng/L (0-12)
[2022-06-07 04:49] LABS: Basophils % 0.1 %; Hematocrit 38.8 % (42.0-52.0); Hemoglobin 12.9 g/dL (11.7-16.6); Lymphocytes # 1.3 10^3/uL (0.8-4.8); Lymphocytes % 16.6 %; Mean Corpuscular HGB Conc 33.2 g/dL (30.0-36.0); Mean Corpuscular Hemoglobin 35.5 pg (28.0-34.0); Mean Corpuscular Volume 106.9 fl (80-94); Monocytes # 0.6 10^3/uL (0.2-0.9); Monocytes % 7.9 %; Neutrophils # 5.55 10^3/uL (1.8-7.7); Neutrophils % 73.9 %; Nucleated Red Blood Cells % 0 %; Platelet Count 79 10^3/cmm (130-400); Red Blood Count 3.63 10^6/uL (4.1-5.3); Red Cell Distribution Width 11.9 % (12.1-15.1); White Blood Count 7.5 10^3/uL (4.0-10.0)
[2022-06-07 05:04] LABS: Albumin Level 2.6 g/dL (3.5-5.2); Alkaline Phosphatase 41 U/L (40-130); Blood Urea Nitrogen 13 mg/dL (8-23); Calcium 8.4 mg/dL (8.5-10.5); Carbon Dioxide 28 mmol/L (22-29); Chloride 102 mmol/L (98-107); Creatinine Clr Calc Pharmacy 44.2988; Globulin 2.9 g/dL (1.3-4.6); Glucose 157 mg/dL (65-115); Magnesium 1.8 mg/dL (1.7-2.3); Osmolality Calculated 289 mOsm/kg (285-295); Sodium 138 mmol/L (136-145); Total Bilirubin 0.4 mg/dL (0.15-1.2); Total Protein 5.5 g/dL (6.6-8.7)
[2022-06-07 05:19] LABS: Anion Gap 12.5 (5-19); Aspartate Amino Transferase 11 U/L (0-40); Potassium 4.5 mmol/L (3.5-5.1)
[2022-06-07 05:20] LABS: Alanine Aminotransferase 25 U/L (0-41)
[2022-06-07 08:05] LABS: Free T4 Free Thyroxine 1.04 ng/dL (0.82-1.77)
[2022-06-07 08:50] LABS: Prolactin 5.25 ng/mL (4.0-15.2)
[2022-06-07] MEDS: divalproex DR 500 mg Tablet PO ×2 (08:54→18:52)
[2022-06-07] MEDS: cholecalciferol (vitamin D3) 1,000 unit Tablet 2000 UNIT PO (08:54)
[2022-06-07] MEDS: pantoprazole DR 40 mg Tablet PO (08:55)
[2022-06-07] MEDS: aspirin 81 mg EC Tablet PO (08:55)
--- NOTE | 2022-06-07 10:16 | MRR_ITS ---
PROCEDURE INFORMATION: Exam: MR Head Without Contrast Exam date and time: 06/07/2022 4:44 PM Age: 87 years old Clinical indication: Syncope and collapse; Patient HX: PT AMS unable to obtain history TECHNIQUE: Imaging protocol: Magnetic resonance imaging of the head without contrast. COMPARISON: CT head wo con* [id number] 06/06/2022 4:51 PM FINDINGS: Brain: Parenchymal atrophy appropriate for patient's age. Cerebral ventricles: Normal. No ventriculomegaly. Bones/joints: Unremarkable. Paranasal sinuses: Normal as visualized. No acute sinusitis. Mastoid air cells: Normal as visualized. No mastoid effusion. Orbital cavities: Bilateral cataract surgery. Soft tissues: Unremarkable. Other findings: No acute infarct. MR/MR head wo con* [id number] IMPRESSION: No acute intracranial abnormality.
--- NOTE | 2022-06-07 10:46 | PC.CHAP ---
Pastoral Care Encounter/Spiritual Assessment Type of Contact [] Declined audio visual director visit [] Patient/Family/Request visit [] Outpatient visit [] Follow-up visit [] Physician referral [] Code/Alert [x] Routine visit [] Staff referral [] Actively dying [] Patient sleeping [] Family support [] [] Out of room [] Palliative care [] [] Receiving care in room [] Pre-surgical visit [] Trauma [] Long length of stay [] ICU visit [] Other: Relational/Emotional Strength [x] Patient feels connected with others/family/visitors/staff [] Distress [] Loneliness/isolation [] Abandonment Spirituality of Patient [x] Person of Eula [] Attends Jew of their Eula [x] Believes in Prayer [] Reads Bible or Congregational materials [] There are Spiritual issues to be addressed Thermometer Maker Interventions [x] Prayer [x] Active listening [x] Non-anxious presence [] Spiritual/emotional support [] Crisis/trauma care [] Spiritual counseling [] Bereavement support [] Provided bereavement packet [] Provided Bible/devotional materials [] Provided toy/stuffed animal, coloring book to patient or family member [] Provided Communion [] Anointing/[place] [] Salvation [x] Completed spiritual assessment [] Other: Impact on Illness or Injury [] Angry [] Fearful [] Anxious [] Often cries [] Exhaustion [] Unable to work [] Unable to attend sabianism [] Unable to walk/stand [] Unable to read [] Unable to drive [] Unable to eat/drink [] Unable to sleep [] Unable to be with family [] Patient intubated [] Other: Summary Time spent with patient 10 min
--- NOTE | 2022-06-07 10:55 | P.PN_ITS ---
Subjective Subjective: Niece is present at the bedside Patient is able to answer a few questions He does have weakness of his upper and lower extremities which according to the family member is how he is most of the time No active confusion D-dimer is high at I have requested MRI head Prolactin is not high UTI Vitals/I&O/Wt Last Vital Signs Temp 97.4 F L 06/07/22 07:29 Pulse 68 06/07/22 07:29 Resp 16 06/07/22 07:29 BP 139/70 06/07/22 07:29 Pulse Ox 95 06/07/22 07:29 O2 Del Method 06/07/22 07:29 06/06/22 06/07/22 06/07/22 22:59 06:59 14:59 Intake Total 550 / 550 120 / 670 120 / 120 Balance 550 / 550 120 / 670 120 / 120 Weight last 48 hrs Weight 45.359 kg Weight 68.039 kg Physical Exam Narrative: Patient is oriented to himself Able to tell me his name, date of is not oriented to place or person Abdomen is soft Lower extremity weakness, mild edema Pinpoint pupils, currently the family member is a new change since this event S1, S2 Currently on room air No acute distress Patient has resting tremors of extremities Data : 06/07/22 03:24 06/07/22 03:24 Micro: Microbiology 06/06/22 18:55 Urine Culture - Preliminary Urine,Clean Catch Gram Negative Rods 06/06/22 20:40 Blood Culture - Preliminary Blood SPECIMEN COLLECTED 06/06/22 20:35 Blood Culture - Preliminary Blood SPECIMEN COLLECTED A&P Assessment and plan (1) Unresponsive episode: Status: Acute (2) Acute cystitis: Status: Acute (3) Weakness: Status: Acute (4) Prostate cancer: Status: Acute (5) Urinary retention: Status: Acute Plan Unresponsive episode Metabolic encephalopathy related to UTI According to the family member patient was knocked out for about 2 minutes And started puking as soon as he woke up Prolactin is not high Breakthrough seizure? Orthostatic hypotension Patient is bedbound need maximum assistance for daily activities Continue ceftriaxone Can do orthostatics on him Patient is bedbound will not benefit from PT at this point Will do MRI head he does have pinpoint pupils which according to the family member is a new change Weakness of upper and lower extremities at baseline Currently on room air Due to prophylaxis Lovenox Resting tremors added propanolol DNR/DNI Will do speech evaluation Attestations Medical Necessity Statement*: Continue medical management Time Spent in Patient Care: 30 Coding Level of Care Code Acute Ultrasound Supervisor for Chg Fwd Diagnoses Unresponsive episode R41.89 Acute cystitis N30.00 Weakness R53.1 Prostate cancer C61 Urinary retention R33.9
--- NOTE | 2022-06-07 11:59 | PC.OT ---
Pt's niece at bedside. Per niece, at baseline pt requires max assist with all ADLs/transfers, [facility] d/t being unable to sit without full support, is bed bound, uses shanika lift, and has hospital bed. Niece reports weak nursery nurse at baseline, tremor, stiffness with ROM, and baseline at ROM. Niece states no interest in therapy at this time and no concerns regarding care upon return home or other DME/adaptive equipment needed at this time. Once pt awakes, he is observed to be able to track in both R and L gotti, touch hands to head with significant tremor and increased time, cannot stick tongue out, and has poor nursery nurse. Decreased direction-following this date but pleasant and speaks with therapist. No skilled occupational therapy recommended this date.
[2022-06-07] MEDS: propranolol 40 mg Tablet 10 MG PO ×2 (13:30→18:52)
[2022-06-07] MEDS: dextrose 5%-sod chloride 0.9% 1,000 ML 75 ML IV (13:32)
[2022-06-07] MEDS: cefTRIAXone 1,000 MG in sodium chloride 0.9% (plus) 50 ML 100 MG IV (20:18)
[2022-06-07] MEDS: gabapentin 100 mg Capsule PO (20:20)
[2022-06-07] MEDS: donepezil 5 MG Tablet 20 MG PO (20:20)
[2022-06-07] MEDS: enoxaparin 40 mg/0.4 mL Syringe SUBCUT (20:20)
[2022-06-07] MEDS: tamsulosin 0.4 mg Capsule PO (20:20)
[2022-06-08] VITALS: BP 143/69; PULSE 61; RESP 12; TEMP 36.9; O2SAT 96
[2022-06-08 04:00] VITALS: BP 146/73; PULSE 52; RESP 12; TEMP 36.9; O2SAT 98
[2022-06-08 06:00] VITALS: PULSE 50
[2022-06-08 06:16] LABS: Basophils % 0.2 %; Eosinophils % 0.7 %; Hematocrit 38.1 % (42.0-52.0); Hemoglobin 13.1 g/dL (11.7-16.6); Lymphocytes # 1.5 10^3/uL (0.8-4.8); Mean Corpuscular HGB Conc 34.4 g/dL (30.0-36.0); Mean Corpuscular Hemoglobin 36.1 pg (28.0-34.0); Mean Platelet Volume 8.2 fL (7.4-10.4); Monocytes # 0.5 10^3/uL (0.2-0.9); Monocytes % 12.4 %; Neutrophils # 2.02 10^3/uL (1.8-7.7); Neutrophils % 50.2 %; Nucleated Red Blood Cells % 0 %; Platelet Count 62 10^3/cmm (130-400); Red Blood Count 3.63 10^6/uL (4.1-5.3); Red Cell Distribution Width 11.8 % (12.1-15.1)
[2022-06-08 06:45] LABS: Alanine Aminotransferase 11 U/L (0-41); Albumin Level 2.7 g/dL (3.5-5.2); Alkaline Phosphatase 43 U/L (40-130); Anion Gap 13.2 (5-19); Aspartate Amino Transferase 26 U/L (0-40); Blood Urea Nitrogen 11 mg/dL (8-23); Calcium 8.2 mg/dL (8.5-10.5); Carbon Dioxide 25 mmol/L (22-29); Chloride 103 mmol/L (98-107); Creatinine Clr Calc Pharmacy 44.2988; Globulin 2.5 g/dL (1.3-4.6); Glucose 129 mg/dL (65-115); Magnesium 1.8 mg/dL (1.7-2.3); Osmolality Calculated 285 mOsm/kg (285-295); Phosphorus 2.8 mg/dL (2.5-4.5); Potassium 4.2 mmol/L (3.5-5.1); Sodium 137 mmol/L (136-145); Total Bilirubin 0.3 mg/dL (0.15-1.2); Total Protein 5.2 g/dL (6.6-8.7)
[2022-06-08] MEDS: dextrose 5%-sod chloride 0.9% 1,000 ML 75 ML IV (07:00)
[2022-06-08 08:00] VITALS: BP 145/62; PULSE 53; RESP 18; TEMP 36.4; O2SAT 96
[2022-06-08] MEDS: pantoprazole DR 40 mg Tablet PO (08:30)
[2022-06-08] MEDS: divalproex DR 500 mg Tablet PO (08:30)
[2022-06-08] MEDS: cholecalciferol (vitamin D3) 1,000 unit Tablet 2000 UNIT PO (08:30)
[2022-06-08] MEDS: aspirin 81 mg EC Tablet PO (08:30)
[2022-06-08] MEDS: propranolol 40 mg Tablet 10 MG PO (08:30)
--- NOTE | 2022-06-08 11:47 | PM.DCS ---
Discharge Providers Date of Admission: 06/06/22 21:21 Date of Discharge: June 08, 2022 Attending Provider at Admission: Rusty Garcia MD Attending Provider at Discharge: Shelia Prado MD Primary Care Provider: Mike Mcmanus DO Diagnoses at Discharge Discharge Diagnosis (1) Unresponsive episode: Status: Acute (2) Acute cystitis: Status: Acute (3) Weakness: Status: Acute (4) Prostate cancer: Status: Acute (5) Urinary retention: Status: Acute Reason for Visit Reason for Visit: DECREASED LOC Hospital Course Hospital Course 87-year-old male who has a history of prostate cancer, dementia, recently started experiencing tremors, follows up with [facility], presented to hospital after 1 syncopal event, had MRI was requested which was unremarkable, carotids Doppler did not show significant stenosis, he remained sinus rhythm with bradycardia during sleep, remained afebrile, he was diagnosed with UTI and required antibiotics, at baseline he is maximal assist, Liz lift, bedbound, niece is taking care of him, he is like a father to his knees, does not have children, there is one sibling who has been updated. I did question whether his pinpoint pupils were something new or chronic. Currently the knees she has never noticed pinpoint pupils before. He is able to lift his upper extremities at least 1 feet above the floor, he has significant weakness of upper and lower extremities which is chronic, he can wiggle his toes, follow commands, able to reply in simple words. He is able to make his needs known. CT head unremarkable. For his essential tremors I have added very low-dose propanolol, added antibiotics for UTI. Niece is going to follow-up with neurologist with [facility]. His prolactin level is also not remarkably high to indicate seizure episode, patient is bedbound, not able to do orthostasis vitals, he does take tamsulosin for his prostate. No signs of hypoxia or tachycardia, he remained in sinus rhythm no sinus tachycardia. No signs of DVT. Will do CTA chest to rule out PE before his discharge. Physical Exam Narrative: Patient is bedbound Able to lift his upper extremities 1 feet above floor level for about few seconds, he has significant weakness of upper and lower extremities Pinpoint pupils Able to follow command Answer questions in simple words Mostly keeps his eyes closed Did not appreciate facial droop S1, S2 Currently on room air Niece at the bedside Abdomen soft Discharge Data Studies Completed and Pending Completed Studies During Hospitalization Category Date Time Status CT head wo con* [id number] Stat Cat Scan 06/06/22 15:52 Completed XR chest 1V portable [id number] Stat Exams 06/06/22 15:52 Completed MR head wo con* [id number] Routine MRI 06/07/22 10:16 Completed CV carotid duplex BI* [id number] Stat Ultrasound 06/06/22 19:56 [place] [id number] Stat Ultrasound 06/06/22 20:07 Completed CV. echo complete* [id number] Stat Ultrasound 06/06/22 19:56 Completed Pending at discharge Category Date Time Status Blood Culture Stat Lab 06/06/22 20:40 Results Complete Blood Count w/Auto AM LABS Lab 06/09/22 04:00 Ordered Comprehensive Metabolic Panel AM LABS Lab 06/09/22 04:00 Ordered Magnesium AM LABS Lab 06/09/22 04:00 Ordered Phosphorus AM LABS Lab 06/09/22 04:00 Ordered Radiology Impressions Chest X-Ray 06/06/22 15:52 IMPRESSION: No acute findings. Head CT 06/06/22 15:52 IMPRESSION: 1. Negative for intracranial hemorrhage or mass effect. 2. Large amount of diffuse white matter disease likely reflecting chronic microvascular ischemic changes. Head MRI 06/07/22 10:16 IMPRESSION: No acute intracranial abnormality. Laboratory Results WBC 4.0 10^3/uL (4.0-10.0) 06/08/22 06:05 RBC 3.63 10^6/uL (4.1-5.3) L 06/08/22 06:05 Hgb 13.1 g/dL (11.7-16.6) 06/08/22 06:05 Hct 38.1 % (42.0-52.0) L 06/08/22 06:05 MCV 105.0 fl (80-94) H 06/08/22 06:05 MCH 36.1 pg (28.0-34.0) H 06/08/22 06:05 MCHC 34.4 g/dL (30.0-36.0) 06/08/22 06:05 RDW 11.8 % (12.1-15.1) L 06/08/22 06:05 Plt Count 62 10^3/cmm (130-400) L 06/08/22 06:05 MPV 8.2 fL (7.4-10.4) 06/08/22 06:05 Neut % (Auto) 50.2 % 06/08/22 06:05 Lymph % (Auto) 36.0 % 06/08/22 06:05 [place] % (Auto) 12.4 % 06/08/22 06:05 Eos % (Auto) 0.7 % 06/08/22 06:05 Baso % (Auto) 0.2 % 06/08/22 06:05 Neut # (Auto) 2.02 10^3/uL (1.8-7.7) 06/08/22 06:05 Lymph # (Auto) 1.5 10^3/uL (0.8-4.8) 06/08/22 06:05 [place] # (Auto) 0.5 10^3/uL (0.2-0.9) 06/08/22 06:05 Eos # (Auto) 0.0 10^3/uL (0.0-0.8) 06/08/22 06:05 Baso # (Auto) 0.0 10^3/uL (0.0-0.1) 06/08/22 06:05 Nucleated RBC % (auto) 0 % 06/08/22 06:05 Nucleated RBCs # 0.0 /100WBC 06/08/22 06:05 D-Dimer 1.38 ug/mIFEU (0-0.59) H 06/06/22 15:18 Sodium 137 mmol/L (136-145) 06/08/22 06:05 Potassium 4.2 mmol/L (3.5-5.1) 06/08/22 06:05 Chloride 103 mmol/L (98-107) 06/08/22 06:05 Carbon Dioxide 25 mmol/L (22-29) 06/08/22 06:05 Anion Gap 13.2 (5-19) 06/08/22 06:05 BUN 11 mg/dL (8-23) 06/08/22 06:05 Creatinine 0.7 mg/dL (0.7-1.2) 06/08/22 06:05 GFR Calculation Not Reportable 06/08/22 06:05 Glucose 129 mg/dL (65-115) H 06/08/22 06:05 Calculated Osmolality 285 mOsm/kg (285-295) 06/08/22 06:05 Lactic Acid 3.0 mmol/L (0.5-2.2) H 06/06/22 17:10 Lactic Acid (Sepsis) 3.0 mmol/L (0.5-2.2) H 06/06/22 20:39 Calcium 8.2 mg/dL (8.5-10.5) L 06/08/22 06:05 Phosphorus 2.8 mg/dL (2.5-4.5) 06/08/22 06:05 Magnesium 1.8 mg/dL (1.7-2.3) 06/08/22 06:05 Total Bilirubin 0.3 mg/dL (0.15-1.2) 06/08/22 06:05 AST 26 U/L (0-40) 06/08/22 06:05 ALT 11 U/L (0-41) 06/08/22 06:05 Alkaline Phosphatase 43 U/L (40-130) 06/08/22 06:05 Ammonia 17 umol/L (16-60) 06/06/22 22:46 Troponin T Baseline 11 ng/L (0-15) 06/06/22 15:18 Troponin T 120 Minute 10.14 ng/L (0-15) 06/06/22 17:10 Delta Troponin T -0.86 ABS# (0-10) L 06/06/22 17:10 Troponin T Hi Sens 6Hr 11.23 ng/L (0-15) 06/06/22 20:39 Troponin T Hi Sens 6Hr Delta 0.23 ng/L (0-12) 06/06/22 20:39 C-Reactive Protein 10.2 mg/L (0.0-4.9) H 06/06/22 17:10 NT-Pro-B Natriuret Pep 206 pg/mL (0-450) 06/06/22 17:10 Total Protein 5.2 g/dL (6.6-8.7) L 06/08/22 06:05 Albumin 2.7 g/dL (3.5-5.2) L 06/08/22 06:05 Globulin 2.5 g/dL (1.3-4.6) 06/08/22 06:05 Lipase 14 U/L (13-60) 06/06/22 15:18 Procalcitonin 0.07 ng/mL (0-0.5) 06/06/22 17:10 TSH 22.66 uIU/mL (0.27-4.20) H 06/06/22 17:10 Free T4 1.04 ng/dL (0.82-1.77) 06/07/22 03:24 Prolactin 5.25 ng/mL (4.0-15.2) 06/07/22 03:24 Urine Color Yellow (Yellow) 06/06/22 18:55 Urine Appearance Clear (CLEAR) 06/06/22 18:55 Urine pH 5 (5-7) 06/06/22 18:55 Ur Specific [place] 1.030 (1.005-1.030) 06/06/22 18:55 Urine Protein 3+ (Negative) H 06/06/22 18:55 Urine Glucose (UA) 2+ (Normal) H 06/06/22 18:55 Urine Ketones 2+ (Negative) H 06/06/22 18:55 Urine Blood 3+ (Negative) H 06/06/22 18:55 Urine Nitrate Positive (Negative) H 06/06/22 18:55 Urine Bilirubin 1+ (Negative) H 06/06/22 18:55 Urine Urobilinogen Norm mg/dL (Negative) 06/06/22 18:55 Ur Leukocyte Esterase 2+ (Negative) H 06/06/22 18:55 Urine RBC 0-4 /hpf (0-2) H 06/06/22 18:55 Urine WBC Too numerous to cnt /hpf (0-5) H 06/06/22 18:55 Ur Squamous Epith Cells 0-4 /hpf (0-5) H 06/06/22 18:55 Amorphous Sediment Not Reportable 06/06/22 18:55 Urine Bacteria 3+ /hpf (NONE) H 06/06/22 18:55 Vitals Last Vital Signs Temp 97.6 F 06/08/22 08:00 Pulse 53 L 06/08/22 08:00 Resp 18 06/08/22 08:00 BP 145/62 06/08/22 08:00 Pulse Ox 96 06/08/22 08:00 O2 Del Method 06/08/22 04:00 Discharge Plan Discharge Patient Disposition: Home Condition: Stable Prescriptions: New cefpodoxime 200 mg tablet 200 mg PO BID Qty: 10 0RF Rx Instructions: must administer with a meal/food propranolol 10 mg tablet 5 mg PO DAILY Qty: 60 0RF Continued aspirin [Adult Low Dose Aspirin] 81 mg tablet,delayed release (DR/EC) 81 mg PO DAILY cholecalciferol (vitamin D3) 50 mcg (2,000 unit) capsule 50 mcg PO DAILY donepezil 10 mg tablet 20 mg PO BEDTIME divalproex 500 mg tablet,delayed release (DR/EC) 500 mg PO BID gabapentin 100 mg Capsule 100 mg PO BEDTIME tamsulosin 0.4 mg capsule 0.4 mg PO BEDTIME Discharge Orders: Discharge Order (Routine); Ordered 06/08/22 Ordered By: Shelia Prado Referrals: Mike Mcmanus, [Primary Care Provider] - (Please call for an follow-up appointment in 4 to 7 days. ) Patient Instructions: Opioid Safety Discharge Attestations Time Spent in Discharge Care*: less than 30 min Quality Metrics Clinical Quality Measures [ No reported AMI, CVA or VTE this stay] Coding Level of Care Code Acute Chg FW DC note Diagnoses Unresponsive episode R41.89 Acute cystitis N30.00 Weakness R53.1 Prostate cancer C61 Urinary retention R33.9
[2022-06-08 12:00] VITALS: BP 108/69; PULSE 50; RESP 16; TEMP 37.2; O2SAT 96
--- NOTE | 2022-06-08 12:24 | CTR_ITS ---
PROCEDURE INFORMATION: Exam: CTA Chest With Contrast Exam date and time: 06/08/2022 1:41 PM Age: 87 years old Clinical indication: Other: Increase d dimer; Additional info: Syncope TECHNIQUE: Imaging protocol: Computed tomographic angiography of the chest with contrast. 3D rendering (Not supervised by radiologist): MIP and/or 3D reconstructed images were created by the technologist. Radiation optimization: All CT scans at this facility use at least one of these dose optimization techniques: automated exposure control; mA and/or kV adjustment per patient size (includes targeted exams where dose is matched to clinical indication); or iterative reconstruction. Contrast material: OMNI 350; Contrast volume: 95 ml; Contrast route: INTRAVENOUS (IV); COMPARISON: CR XR chest 1V portable [id number] 06/06/2022 4:00 PM RADIATION DOSE METRICS: Total DLP (mGy-cm): 368.73 FINDINGS: Pulmonary arteries: Normal. No pulmonary emboli. Aorta: Unremarkable. No aortic aneurysm. No aortic dissection. Lungs: There are pulmonary parenchymal calcifications consistent with remote granulomatous organism exposure. There are dependent atelectatic changes. There are minimal bilateral pulmonary ground-glass opacities. Pleural spaces: Trace bilateral pleural fluid. Heart: There are coronary artery calcifications. Lymph nodes: There are calcified mediastinal and perihilar lymph nodes consistent with prior granulomatous exposure. Diaphragm: Small hiatal hernia. Bones/joints: There are degenerative changes in the visualized spine.There are diffuse enthesopathic changes consistent with benign diffuse idiopathic skeletal hyperostosis (DISH). Soft tissues: Unremarkable. CT/CT angio chest PE protcl [id number] IMPRESSION: 1. Bilateral pulmonary ground-glass opacities are nonspecific and can be seen with pulmonary edema, pneumonitis, pneumonia, and/or atelectasis. 2. There are coronary artery calcifications. 3. Trace bilateral pleural fluid.
--- NOTE | 2022-06-08 13:04 | PC.NURSE ---
PRESCRIPTIONS CALLED INTO [facility]
[2022-06-08] MEDS: iohexol 350 mg/mL 100 mL Btl IV (13:49)
== END 2022-06-08 15:26 | disposition home or self-care (01) ==
LOC: ER 19:30 → MEDSURG 20:22
PROVIDERS: Family Medicine; Admitting Provider Family Medicine; Emergency Provider Emergency Medicine; PCP Emergency Medicine Emergency Medical Services; Visit Provider Internal Medicine
DX: R41.89 Other symptoms and signs involving cognitive functions and awareness (principal); N30.00 Acute cystitis without hematuria; R53.1 Weakness; R33.9 Retention of urine, unspecified; Z85.46 Personal history of malignant neoplasm of prostate; Z66 Do not resuscitate
CPT/HCPCS: 36415; 70450; 70551; 71045; 71275; 80053; 81001; 82140; 83605; 83690; 83735; 83880; 84100; 84145; 84146; 84439; 84443; 84484; 85025; 85378; 86140; 87040; 87077; 87086; 87186; 92523; 92610; 93005; 93306; 93880; 93970; 94664; 96365; 96372; 99285; G0378; J0696; J1650; J7040; Q9967